=== PATIENT | female | born 1940 | race African-American/Black ===

== ENCOUNTER 2016-07-17 08:16 | Day surgery (SDC) | payer OTHER ==
[2016-07-12 11:07] VITALS: BMI 24.9
[2016-07-17 08:46] VITALS: TEMP 98.1
[2016-07-17] MEDS ORDERED: LIDOCAINE HCL/PF 2% SDV 5ML VIAL ONE (10:06)
[2016-07-17] MEDS ORDERED: PROPOFOL 20 ML ONE ×2 (10:06→10:08)
[2016-07-17 11:47] VITALS: BP 103/63; PULSE 74
--- NOTE | 2016-07-18 11:29 | PATH ---
Surgical Pathology Report Patient Name: AURE CHIN [facility]. Rec. #: [id number] /Age/Gender: 1940 (Age: 75) / F Account: [id number] [facility] Taken: 07/17/2016 Received: 07/17/2016 Reported: 07/18/2016 Physicians: Tc Carter M.D. Specimen(s) Received A: BX ANTRUM B: BX DISTAL ESOPHAGUS C: BX POLYP RIGHT COLON Clinical History Dotson's, history of polyps Dotson's, polyp Final Diagnosis A. STOMACH, ANTRUM, BIOPSY: MODERATE CHRONIC GASTRITIS WITH INTESTINAL METAPLASIA. NO DYSPLASIA IDENTIFIED. IMMUNOSTAIN FOR H. PYLORI IS NEGATIVE. B. DISTAL ESOPHAGUS, BIOPSY: SQUAMOUS AND GASTRIC MUCOSA WITH CHRONIC INFLAMMATION AND INTESTINAL METAPLASIA CONSISTENT WITH DOTSON'S ESOPHAGUS IN THE PROPER CLINICAL CONTEXT. NO DYSPLASIA IDENTIFIED. C. COLON, RIGHT, BIOPSY: TUBULAR ADENOMA. Electronically Signed Cain Mullins M.D. Gross Description A. Received in formalin, labeled "antrum" are 2 elder, irregular portions of soft tissue averaging 0.4 cm. in greatest dimension. The specimens are submitted in toto in one cassette. B. Received in formalin, labeled "distal esophagus" is a elder, irregular portion of soft tissue measuring 0.4 cm. in greatest dimension. The specimen is submitted in toto in one cassette. C. Received in formalin, labeled "polyp right colon" is a elder, irregular portion of soft tissue measuring 0.2 cm. in greatest dimension. The specimen is submitted in toto in one cassette. 07/17/2016 saudi07/17/2016
== END 2016-07-17 11:35 | disposition home or self-care (01) ==
LOC: FASU-ENDO 08:16
PROVIDERS: ATTEND Internal Medicine Gastroenterology
PROC: 0DB48ZX Excision of Esophagogastric Junction, Via Natural or Artificial Opening Endoscopic, Diagnostic (ICD-10-PCS; 2016-07-17)
PROC: 0DB68ZX Excision of Stomach, Via Natural or Artificial Opening Endoscopic, Diagnostic (ICD-10-PCS; 2016-07-17)
PROC: 0DBK8ZX Excision of Ascending Colon, Via Natural or Artificial Opening Endoscopic, Diagnostic (ICD-10-PCS; principal; 2016-07-17 10:22)
DX: Z86.010 Personal history of colon polyps (principal); Z80.0 Family history of malignant neoplasm of digestive organs; Z83.71 Family history of colonic polyps; D12.2 Benign neoplasm of ascending colon; K29.50 Unspecified chronic gastritis without bleeding; K22.70 Barrett's esophagus without dysplasia
CPT/HCPCS: 88305-TC; 88342-TC

== ENCOUNTER 2018-06-13 09:09 | Inpatient (IN) | payer OTHER ==
[2018-06-13] MEDS ORDERED: SODIUM CHLORIDE 1,000 ML IV SCH (09:15)
--- NOTE | 2018-06-13 09:32 | PDOC ---
History of Present Illness - General Chief Complaint: CVA/TIA Stated Complaint: POSS STROKE Time Seen by Provider: 06/13/18 09:11 History Source: Patient Exam Limitations: No Limitations - History of Present Illness Initial Comments: 06/13/18 10:49 The patient is a 77F with a PMH of HTN, HLD, and Puckett's esophagus who presents to the ER with complaints of slurred speech. The patient states that she noticed her speech was slurred around 0845 this morning and she was brought to the hospital. She states she's been "feeling weird" for the past few weeks and denies any other numbness, tingling, and weakness in her body. She denies any changes in vision and inability to walk. tPA Exclusion Checklist 0-3hr - Time Elapsed Date last known well: 06/13/18 Time last known well: 08:45 Elaspsed time: Day(s) and 3 Hour(s) and 0 Minutes - Thrombolytic Therapy Candidate Is the patient eligible for Thrombolytic Therapy?: Yes - Exclusion Criteria 0-3hr SBP greater than 185 or DBP greater than 110mmHg despite tx: No Recent IC/spinal surgery,head trauma or stroke w/in last 3mo: No Hx of previous IC hemorrhage, IC neoplasm, AVM or aneurysm: No Active internal bleeding: No Blding diathesis(low plt ct, inc PTT,INR>1.7 or use of NOAC): No Symptoms suggest subarachnoid hemorrhage: No CT demonstrates multilobar infarct(>1/3 cerebral hemiphere): No Arterial puncture at noncompressible site in previous 7 days: No Blood glucose concentration less than 50mg/dL (2.7mmol/L): No - Relative Exclusion Criteria 0-3h Rapid improvement: Yes - Ineligibility reason(s) Reasons No tPA given: See reason(s) noted above (Improvement in symptoms with low NIHSS) NIH Stroke Scale - Last Known Well Date/Time & Onset Date Last Known Well: 06/13/18 Time Last Known Well: 08:45 - Initial Evaluation Level of consciousness: Alert Ask patient to open & close eyes; make fist and let go: Obeys both correctly Best gaze (horizontal eye movement): Normal Visual field testing: No visual field loss Facial paresis (Show teeth/raise eyebrows/close eyes tight): Minor paralysis ( flattened nasolabial fold, asymmetry on smiling) Motor Function: Left Arm: Drift Motor Function: Right Arm: Normal (extends arm 90 (or 45) degrees for 10 seconds without drift Motor Function: Left Leg: Normal (extends leg 30 degrees for 5 seconds without drift) Motor Function: Right Leg: Normal (extends leg 30 degrees for 5 seconds without drift) Limb Ataxia: No ataxia Sensory(Use pinprick test arms,legs,trunk,face/side to side): Normal Best language (Describe picture, name items, read sentences): Mild to moderate aphasia Dysarthria (read several words): Normal articulation Extinction and Inattention: No abnormality Past History - Past Medical History Allergies/Adverse Reactions: Allergies Allergy/AdvReac Type Severity Reaction Status Date / Time shellfish derived Allergy Intermediate Rash Verified 06/13/18 09:31 IV CONTRAST DYE AdvReac Intermediate Vomiting Uncoded 06/13/18 09:31 Home Medications: Ambulatory Orders Valsartan [Diovan] 160 mg PO DAILY 05/24/11 Pravastatin Sodium 10 mg PO DAILY 05/04/16 Ascorbic Acid [Vitamin C -] 250 mg PO DAILY 07/12/16 Aspirin Coated [Ecotrin -] 81 mg PO DAILY 07/12/16 Pantoprazole Sodium 40 mg PO PRN PRN 07/12/16 Anemia: No Asthma: No Cancer: No Cardiac Disorders: No CVA: No COPD: No CHF: No Dementia: No Diabetes: No GI Disorders: Yes (Barrets syndrome) Disorders: No HTN: Yes (DX 1991) Hypercholesterolemia: Yes (DX 1991) Liver Disease: No Seizures: No Thyroid Disease: No - Surgical History Abdominal Surgery: No Appendectomy: No Cardiac Surgery: No Cholecystectomy: No Lung Surgery: No Neurologic Surgery: No Orthopedic Surgery: Yes (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 No weakness. HEAD, EYES, EARS, NOSE AND THROAT: No change in vision. No ear pain or discharge. No sore throat. CARDIOVASCULAR: No chest pain, palpitations, or lightheadedness. RESPIRATORY: No cough, wheezing, shortness of breath, or hemoptysis. GASTROINTESTINAL: No nausea, vomiting, diarrhea, constipation, or abdominal pain. GENITOURINARY: No dysuria, frequency, hematuria, or change in urination. MUSCULOSKELETAL: No joint or muscle swelling or pain. No neck or back pain. SKIN: No rash or lesions. NEUROLOGIC: Positive for slurred speech. No headache, numbness, tingling, focal weakness, loss of consciousness, or change in strength/sensation. ENDOCRINE: No increased thirst. No abnormal weight change. HEMATOLOGIC/LYMPHATIC: No anemia, easy bleeding, or history of blood clots. ALLERGIC/IMMUNOLOGIC: No hives or skin allergy. Is the patient limited Luxembourgish proficient: No *Physical Exam - Vital Signs Last Vital Signs Temp Pulse Resp BP Pulse Ox 110 H 16 181/107 H 97 06/13/18 09:09 06/13/18 09:09 06/13/18 09:09 06/13/18 09:09 - Physical Exam Comments: 06/13/18 10:51 GENERAL: Well developed, well nourished. Awake and alert. No acute distress. HEENT: Normocephalic, atraumatic. Hearing grossly normal. Moist mucous membranes. PERRLA, EOMI. No conjunctival pallor. Sclera are non-icteric. Oropharynx is clear. NECK: Supple. Full ROM. No JVD. Carotid pulses 2+ and symmetric, without bruits. No thyromegaly. No lymphadenopathy. CARDIOVASCULAR: Regular rate and rhythm. No murmurs, rubs, or gallops. Distal pulses are 2+ and symmetric. PULMONARY: No evidence of respiratory distress. Lungs clear to auscultation bilaterally. No wheezing, rales or rhonchi. ABDOMINAL: Soft. Non-tender. Non-distended. No rebound or guarding. No organomegaly. Normoactive bowel sounds. GENITOURINARY: No CVA tenderness bilaterally. MUSCULOSKELETAL: Normal range of motion at all joints. No bony deformities or tenderness. EXTREMITIES: No cyanosis. No clubbing. No edema. No calf tenderness or swelling. SKIN: Warm and dry. Normal capillary refill. No rashes. No jaundice. NEUROLOGICAL: Alert, awake, appropriate. L facial droop appreciated. Otherwise, cranial nerves 2-12 intact. No deficits to light touch and temperature in face, upper extremities and lower extremities. 5/5 strength in R deltoids, biceps, triceps, quadriceps, hamstrings, and gastrocnemius. 4/5 strength in L hand skin grader , otherwise 5/5 strength on L side. No drift noted in b/l upper and lower extremities Finger to nose normal bilaterally. Normal speech. PSYCHIATRIC: Cooperative. Good eye contact. Appropriate mood and affect. Moderate Sedation - Procedure Monitoring Vital Signs: Procedure Monitoring Vital Signs Temperature Pulse Rate 110 H 06/13/18 09:09 Respiratory Rate 16 06/13/18 09:09 Blood Pressure 181/107 H 06/13/18 09:09 O2 Sat by Pulse Oximetry (%) 97 06/13/18 09:09 ED Treatment Course - LABORATORY CBC & Chemistry Diagram: 06/13/18 09:30 06/13/18 09:30 Medical Decision Making - Medical Decision Making 06/13/18 09:31 The patient is a 77F with a PMH of HTN and HLD who presents with acute onset slurred speech with notable L arm skin grader weakness and facial droop concerning for CVA/TIA. Serafin jorge was called immediately upon her arrival to ED. During CT, pt remained stable and had slight improvement of symptoms. Neurology at bedside. Case d/w Dr. Lopez, neurology, at bedside who states that her symptoms have improved with a current NIHSS of 2. Will not give TPA. 06/13/18 10:54 Pt currently stable. Labs WNL. 06/13/18 11:[address] Curtis for admission. *DC/Admit/Observation/Transfer Diagnosis at time of Disposition: Cerebrovascular accident (CVA) Qualifiers: CVA mechanism: other Qualified Code(s): I63.89 - Other cerebral infarction - Discharge Dispostion Condition at time of disposition: Guarded Decision to Admit order: Yes - Referrals Referrals: Palak Pelaez MD [Primary Care Provider] - - Patient Instructions - Post Discharge Activity
[2018-06-13 09:48] LABS: BASO % 1.4 % (0-2.0); EOS % 2.6 % (0-4.5); HEMATOCRIT 39.6 % (32.4-45.2); HEMOGLOBIN 13.3 GM/dL (10.7-15.3); LYMPH % 37.2 % (8-40); MCH 30.8 pg (25.7-33.7); MCHC 33.7 g/dl (32.0-36.0); MEAN CELL VOLUME 91.4 fl (80-96); MEAN PLT VOLUME 8.5 fl (7.5-11.1); MONO % 7.5 % (3.8-10.2); NEUT % 51.3 % (42.8-82.8); PLATELET COUNT 214 K/MM3 (134-434); RBC 4.33 M/mm3 (3.60-5.2); RDW 14.7 % (11.6-15.6); WHITE BLOOD COUNT 4.7 K/mm3 (4.0-10.0)
--- NOTE | 2018-06-13 10:00 | CON.NEURO ---
Consult Consult Specialty:: Neurology Referred by:: Dr. Jolly Powell Reason for Consultation:: Code Jaime - History of Present Illness Chief Complaint: speech difficulty and left sided weakness for an hour History of Present Illness: Patient with history of hypertension noted acute onset of difficulty speaking and daughter said that her face was twisted. They called 911. As they went through the process of getting processed through the "stroke code" protocol she noticed substantial and rapid improvement in her symptoms, though not complete. She denies any headache this AM, though for years had suffered with migraines , though not lately. She is not dizzy. She understands well. - History Source History Provided By: Patient Limitations to Obtaining History: No Limitations - Past Medical History RECREATIONAL SPECIALIST: Yes: Peripheral Neuropathy (patient says that her toes have been numb for years) Cardio/Vascular: Yes: HTN - Alcohol/Substance Use Hx Alcohol Use: No - Smoking History Smoking history: Never smoked Have you smoked in the past 12 months: No If you are a former smoker, when did you quit?: 1985 Home Medications - Allergies Allergies/Adverse Reactions: Allergies Allergy/AdvReac Type Severity Reaction Status Date / Time shellfish derived Allergy Intermediate Rash Verified 06/13/18 09:31 IV CONTRAST DYE AdvReac Intermediate Vomiting Uncoded 06/13/18 09:31 - Home Medications Home Medications: Ambulatory Orders Valsartan [Diovan] 160 mg PO DAILY 05/24/11 Pravastatin Sodium 10 mg PO DAILY 05/04/16 Ascorbic Acid [Vitamin C -] 250 mg PO DAILY 07/12/16 Aspirin Coated [Ecotrin -] 81 mg PO DAILY 07/12/16 Pantoprazole Sodium 40 mg PO PRN PRN 07/12/16 Physical Exam-Neuro Vital Signs: Vital Signs Temperature Pulse Rate 85 06/13/18 09:50 Respiratory Rate 16 06/13/18 09:50 Blood Pressure 139/98 06/13/18 09:50 O2 Sat by Pulse Oximetry (%) 98 06/13/18 09:50 Constitutional: Yes: Well Nourished, No Distress, Calm, Thin Neck: Yes: Supple - Neuro Exam Level Of Consciousness: Yes: Alert, Oriented to Person, Oriented to Place, Oriented to Time Eyes: Yes: NATACHA Speech: Slurred Cranial Nerves II-XII Intact: No (decreased left nasolabial fold) DTR's: 2+ Left Bicep, 2+ Right Bicep, 2+ Left Tricep, 2+ Right Tricep, 2+ Left Brachioradialis, 2+ Right Brachioradialis Response to light touch: Normal Motor Strength: 5/5: Left Arm, Right Arm, Left Leg, Right Leg Gait: Deferred NIH Stroke Scale - Last Known Well Date/Time & Onset Date Last Known Well: 06/13/18 Time Last Known Well: 08:30 - Initial Evaluation Level of consciousness: Alert Ask patient the month and their age: Answers both correctly Ask patient to open & close eyes; make fist and let go: Obeys both correctly Best gaze (horizontal eye movement): Normal Visual field testing: No visual field loss Facial paresis (Show teeth/raise eyebrows/close eyes tight): Minor paralysis ( flattened nasolabial fold, asymmetry on smiling) Motor Function: Left Arm: Normal Motor Function: Right Arm: Normal (extends arm 90 (or 45) degrees for 10 seconds without drift Motor Function: Left Leg: Normal (extends leg 30 degrees for 5 seconds without drift) Motor Function: Right Leg: Normal (extends leg 30 degrees for 5 seconds without drift) Limb Ataxia: No ataxia Sensory(Use pinprick test arms,legs,trunk,face/side to side): Normal Best language (Describe picture, name items, read sentences): No Aphasia Dysarthria (read several words): Mild to moderate slurring of words Extinction and Inattention: No abnormality - Total Score NIH Stroke Scale Score: 2 Imaging - Results Cat Scan: Report Reviewed, Image Reviewed (Extensive periventricular white matter ischemic changes) Problem List - Problems (1) Other cerebral infarction Code(s): I63.89 - OTHER CEREBRAL INFARCTION Assessment/Plan Rapidly improving stroke with minor deficits at the time of assessment and likelihood of further improvement push risk/benefit ratio against administration of TPA. Would change Aspirin to Plavix and increase dose of pravastatin. Would get MRI brain, MRA brain and neck. Echo and holter monitor. Thanks.
[2018-06-13 10:09] LABS: INR 1.07 (0.83-1.09); PROTHROMBIN TIME (PATIENT) 12.6 SEC (9.7-13.0)
[2018-06-13 10:12] LABS: ALBUMIN 4.3 g/dl (3.4-5.0); ALK PHOS 72 U/L (45-117); ANION GAP 7 MMOL/L (8-16); BILIRUBIN,TOTAL 0.8 mg/dL (0.2-1); BLOOD UREA NITROGEN 15 mg/dL (7-18); CALCIUM 9.1 mg/dL (8.5-10.1); CHLORIDE 108 mmol/L (98-107); CHOLESTEROL 188 mg/dL (50-200); CO2 27 mmol/L (21-32); CREATININE 1.1 mg/dL (0.55-1.3); GLUCOSE,RANDOM 89 mg/dL (74-106); HDL CHOLESTEROL 70 mg/dL (40-60); POTASSIUM 4.1 mmol/L (3.5-5.1); SGOT/AST 14 U/L (15-37); SGPT/ALT 13 U/L (13-61); SODIUM 142 mmol/L (136-145); TOT PROT 7.3 g/dl (6.4-8.2); TRIGLYCERIDES 58 mg/dL (0-150)
--- NOTE | 2018-06-13 11:01 | PDOC ---
Attending Attestation - Resident Resident Name: Jayson Hazel - ED Attending Attestation I have performed the following: I have examined & evaluated the patient, The case was reviewed & discussed with the resident, I agree w/resident's findings & plan, Exceptions are as noted - HPI HPI: 06/13/18 12:27 The patient is a 77 year old female, with a significant PMH of hypertension, dyslipidemia, schafer's syndrome, who presents to the emergency department with dysarthria occurring prior to arrival. The patient reports she noted her speech was slurred at approx 8:45 am this morning which prompted the ED visit. The patient endorses feeling weird for the past few weeks. The patient denies any numbness, tingling or loss of sensation. Denies any weakness. Denies any visual changes or blurry vision. Denies difficulty ambulating. Denies any confusion. The patient denies chest pain, shortness of breath, headache and dizziness. Denies fever, chills, nausea, vomit, diarrhea and constipation. Denies dysuria, frequency, urgency and hematuria. Allergies: shellfish derived, [IV CONTRAST DYE] - Physicial Exam PE: 06/13/18 12:27 agree with resident exam - Medical Decision Making 06/13/18 10:27 77yo F presents to the ED with slurred speech, facial droop. Code ward activated. CTH negative. Dr. Lopez at the bedside on initial evaluation, states no TPA as pt's symptoms are improving. Plan for MRI/MRA head and neck, admission.
[2018-06-13] MEDS: CLOPIDOGREL BISULFATE 75 MG TABLET (FP) PO SCH (11:57)
--- NOTE | 2018-06-13 12:21 | EKG ---
Test Reason : Blood Pressure : / mmHG Vent. Rate : 086 BPM Atrial Rate : 086 BPM P-R Int : 142 ms QRS Dur : 082 ms QT Int : 346 ms P-R-T Axes : 035 016 034 degrees QTc Int : 414 ms NORMAL SINUS RHYTHM NORMAL ECG WHEN COMPARED WITH ECG OF 04-MAY-2016 09:13, NO SIGNIFICANT CHANGE WAS FOUND Confirmed by VERO ROTH MD ([id number]) on 06/13/2018 12:20:35 PM Referred By: Confirmed By:VERO ROTH MD
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
[2018-06-13] MEDS ORDERED: PANTOPRAZOLE 40 MG TABLET (FP) PO PRN (14:58)
--- NOTE | 2018-06-13 15:00 | CONSULT ---
Admitting History and Physical - Primary Care Physician PCP: Kari Forte - Admission History of Present Illness: Per EMR:: HISTORY OF PRESENT ILLNESS: Patient is a 77 year old female with past medical history of HTN, HLD, and Puckett's esophagus, presented with left facial droop and slurred speech that started this morning. Last well known at 8:45am. Patient reported she woke up this morning, "not feeling right", but doing her usual morning routine. She was getting ready to play tennis, when her sister noted that her lips were drooping , she was having slurred speech, and hoarseness of voice. She denies any diplopia, dysphagia, abnormal gait, weakness, numbness or tingling. No headache , dizziness, fever, chills, chest pain, SOB, palpitations, abdominal pain, diarrhea, urinary symptoms. Upon arrival at the ED, [facility] ward was called. NIHSS 2. Patient had a history of "memory lapse" 3 months ago, when she was in a car in the passenger seat from a [employer] party, she was not supposed to drive, but she went to the shuttle van driver's seat and drove the car. It took about 15 minutes before family was able to reach her and she became oriented back to reality. She wasn't aware what she was thinking at this time. Afterwards, she joined a study called " aging brain", where patients are having tests done to identify why they're having memory problems. ER course was notable for: (1)NIHSS 2 (2)Head CT - no evidence of acute ICH, edema, midline shift, mass effect, skull fracture. No evidence of acute territorial ischemic changes. 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 Neuropathy (patient says that her toes have been numb for years) Cardiovascular: Yes: HTN - Smoking History Smoking history: Never smoked Have you smoked in the past 12 months: No If you are a former smoker, when did you quit?: 1985 - Alcohol/Substance Use Hx Alcohol Use: No History - Admission Reason For Visit: CVA - Diagnostics CT Scan: Report Reviewed MRI: Pending - General Mental Status: Alert and Oriented, Awake and Alert, Able to Follow Commands Attention: Intact Ability to Follow Directions: Excellent Head/Neck Control: WFL - Hearing Hearing: Functional Speech Evaluation - Communication Primary Language: YAKUT Communication: Yes: Within Normal Limits Oral Expression Ability: Yes: Mild Impairment - Speech Production Able to Make Needs Known: Yes: WNL Intelligibility: Yes: Mildly Impaired - Speech Characteristics Voice Loudness: Mildly Soft/Quiet Voice Pitch: Yes: Normal Voice Phonatory-based Quality: Yes: Dysphonia Nasal Resonance: Normal Articulation: Yes: Imprecise (slight. Bit left lateral portion of tongue while chewing sandswich. 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: WNL Short Term Memory: Yes: WNL - Swallow Evaluation/Bedside Assessment Current Nutritional Intake: Regular, Thin Liquids Oral Secretions: Yes: WFL Dentition: Yes: Adequate (underbite) Facial Symmetry at Rest: Facial Droop Left Facial Symmetry on Retraction: Facial Droop Left Facial Movement: Controlled Sensation: Normal Against Resistance Opening: Normal Against Resistance Closing: Normal Pucker Lips: Droops Left Smile: Droops Left Lingual Movement: Normal, Symmetric Lingual Speed of Movement: Normal Lingual Movement Strgth Against Opposition: Reduced (slight?) Lingual Movement Characteristics: Normal Velopharyngeal Movement: Normal Laryngeal Elevation: Impaired Laryngeal Movement: Reduced Excursion, Labored,delay initiation Rate of Intake: WFL Bolus Size: WFL Labial Seal: Impaired Left (leakage occasionally while drinking.) Chewing: Impaired (bit tongue) A-P Transit: WFL Pocketing: None Timing of Swallow: Delayed Coughing/Throat Clear: Yes (thin tea, harsh cough) Recommendations - Speech Evaluation, Impression/Plan Impression: Harsh cough response while drinking tea.Suspect aspiration. Reports subjective change in swllowing. Dysphonia/Dysphagia/Left facial weakness, bit left side of tongue. Cognition/language functional. - Dysphagia Impressions/Plan Swallowing Skills: Impaired Dysphagia Impressions: Mild Impairment, Suspect Aspiration *Silent aspiration: cannot be R/O at bedside Dysphagia Treatment Plan: Small Bites, Chin Tuck/Down, Trial Feedings, Safe Rate , 1/2 tsp. at a time, Elevate HOB during feed Recommendations: Modified Barium Swallow - Recommendations Diet Consistency: Dysphagia Pureed (to allow tongue to heal, and avoid biting tongue) Medication Administration: Crushed with applesauce Liquids: [place] Thick Supplement: Magic Cup, Ensure Pudding, Other (Ensure Compact)
--- NOTE | 2018-06-13 15:15 | PN ---
Teaching Attending Note Name of Resident: Emily Stevens ATTENDING PHYSICIAN STATEMENT I saw and evaluated the patient. I reviewed the resident's note and discussed the case with the resident. I agree with the resident's findings and plan as documented. SUBJECTIVE: CC: facial droop HPI: very pleasant 77 y/o lady with h/o HTN, HLP, and Barrettes esophagus who presented due to L facial droop and change in her speech. patient was getting ready to go to Tennis and was felt to have abnormal speech by her sister and a " twisted face ". she took a cab and came to ER . upon exam in ER her NIHSS was 2 and her exam improved rapidly. she denied any weakness, numbness or tingling, denied any change in vision . She has no SON she felt transiently unsteady but did not fall. she reports a 15 min episode of disorientation and retrograde memory loss in January 2018. denies palpitations. had MRI 3-4 weeks ago at an out patient memory study center . Now she is on tele floor, she feels better but feels that her lower lip was bigger than before and turned outwards. OBJECTIVE: NAD. awake, alert , oriented x 3. pleasant and cooperative HEENT: MMM, no JVD. EOMI, round equal pupils, L lower facial droop CV: RRR, no mRG Lungs: CTAB Ext : no edema or erythema, no fungal infection. Abd: soft, NT, ND , NL BS. Neuro : EOMI, round pupils, reactive to light and equal. Tongue and uvula at mid line. speech Normal . left lower facial droop with effacement in nasolabial fold nl facial sensation . strength : LUE: shoulder shrug 5/5 , shoulder abduction 5/5 , biceps/triceps 5/5 , hand color coater 5/5 RUE : shoulder shrug 5/5 , shoulder abduction 5/5 , biceps/triceps 5/5 , hand color coater 5/5 RLE: hip felxion 5/5 , knee flexion /extension 5/5 , ankle dorsiflexion and plantar flexion 5/5 . LLE: hip felxion 5/5 , knee flexion /extension 5/5 , ankle dorsiflexion and plantar flexion 5/5 Sensation to light touch Nl, except for decreased sensation in big toes b/l ( chronic ) Reflexes: 2+ knee jerk, biceps, and BR b/l Nose to finger NL. gait NL CT scan and EKG reviewed. ASSESSMENT AND PLAN: Very pleasant 77 y/o lady with h/o HTN, HLP, and Barrettes esophagus who presented due to L facial droop and change in her speech. 1- L facial droop and abnormal speech, sx are consistent with a acute stroke - permissive hypertension . hold HTN meds unless BP > 220/120 - speech eval - MRI - start crestor instead of prava. LDL above goal - appreciate neuro Recs , switch to plavix - tele monitoring. .if neg need holter or prolonged monitoring as out pt - echo and CUS. 2- h/o HTN: as above . - Hold valsartan 3- HLP : as above . crestor 4- PT eval . start DVT px possible dc tomorrow
--- NOTE | 2018-06-13 16:00 | ECHO ---
Name: AURE CHIN Exam:Adult Echocardiogram Study Date: 06/13/2018 01:12 PM Age: 77 yrs Reason For Study: R/O Thrombus and Valvular Height: 67 in Weight: 154 lb BSA: 1.8 m2 MMode/2D Measurements & Calculations IVSd: 1.1 cm Ao root diam: 2.7 cm LVIDd: 3.4 cm ACS: 1.8 cm LVIDs: 2.9 cm LVPWd: 1.4 cm EDV(Teich): 45.8 ml LVOT diam: 2.0 cm ESV(Teich): 33.4 ml Doppler Measurements & Calculations Med Peak E' Michael: 7.7 cm/sec Lat Peak E' Michael: 8.0 cm/sec Procedure A complete two-dimensional transthoracic echocardiogram was performed (2D, M-mode, Doppler and color flow Doppler). Left Ventricle The left ventricular size, thickness and function are normal. The left ventricular ejection fraction is normal. Ejection Fraction = 55-60%. No regional wall motion abnormalities noted. Right Ventricle The right ventricle is normal in size and function. Atria Normal left and right atrial size and function. Mitral Valve There is no mitral regurgitation noted. Tricuspid Valve There is trace tricuspid regurgitation. Aortic Valve The aortic valve is trileaflet. No hemodynamically significant valvular aortic stenosis. Trace aortic regurgitation. Pulmonic Valve Trace to mild pulmonic valvular regurgitation. Great Vessels The aortic root is normal size. Pericardium/Pleura There is no pericardial effusion. Interpretation Summary The left ventricular size, thickness and function are normal The right ventricle is normal in size and function. There is trace tricuspid regurgitation. Trace aortic regurgitation. Trace to mild pulmonic valvular regurgitation. MD Willis Burgos 06/13/2018 03:59 PM
[2018-06-13] MEDS: HEPARIN NA (PORCINE) 5,000 UNITS/ML 1ML VIAL SQ SCH ×2 (16:48→21:02)
[2018-06-13 18:47] VITALS: BMI 24.3
[2018-06-13 19:17] LABS: URINE APPEARANCE CLEAR; URINE BILIRUBIN NEGATIVE (<2.0 mg/dL); URINE COLOR STRAW; URINE GLUCOSE (UA) NEGATIVE (NEGATIVE); URINE KETONE NEGATIVE (NEGATIVE); URINE LEUK ESTERASE NEGATIVE (NEGATIVE); URINE NITRITE NEGATIVE (NEGATIVE); URINE PROTEIN NEGATIVE (NEGATIVE); URINE UROBILINOGEN NEGATIVE mg/dL (0.2-1.0)
[2018-06-13] MEDS ORDERED: ROSUVASTATIN CA 20 MG TABLET (FP) PO SCH (22:00)
[2018-06-14] MEDS: HEPARIN NA (PORCINE) 5,000 UNITS/ML 1ML VIAL SQ SCH ×2 (05:29→15:53)
[2018-06-14 06:06] LABS: BASO % 1.2 % (0-2.0); EOS % 2.5 % (0-4.5); HEMATOCRIT 37.2 % (32.4-45.2); HEMOGLOBIN 13.2 GM/dL (10.7-15.3); LYMPH % 35.2 % (8-40); MCHC 35.4 g/dl (32.0-36.0); MEAN CELL VOLUME 90.5 fl (80-96); MEAN PLT VOLUME 8.3 fl (7.5-11.1); MONO % 6.4 % (3.8-10.2); NEUT % 54.7 % (42.8-82.8); PLATELET COUNT 193 K/MM3 (134-434); RBC 4.12 M/mm3 (3.60-5.2); RDW 14.6 % (11.6-15.6); WHITE BLOOD COUNT 5.4 K/mm3 (4.0-10.0)
[2018-06-14 06:59] LABS: ALBUMIN 3.8 g/dl (3.4-5.0); ALK PHOS 65 U/L (45-117); ANION GAP 6 MMOL/L (8-16); BILIRUBIN,TOTAL 0.7 mg/dL (0.2-1); BLOOD UREA NITROGEN 16 mg/dL (7-18); CALCIUM 8.8 mg/dL (8.5-10.1); CHLORIDE 108 mmol/L (98-107); CO2 27 mmol/L (21-32); CREATININE 1.1 mg/dL (0.55-1.3); GLUCOSE,RANDOM 82 mg/dL (74-106); MAGNESIUM 2.3 mg/dL (1.8-2.4); PHOSPHOROUS 3.5 mg/dL (2.5-4.9); POTASSIUM 4.1 mmol/L (3.5-5.1); SGOT/AST 11 U/L (15-37); SGPT/ALT 13 U/L (13-61); SODIUM 141 mmol/L (136-145); TOT PROT 6.6 g/dl (6.4-8.2)
[2018-06-14] MEDS ORDERED: PT OWN MED DRAWER 7, Y5N ONE (09:50)
[2018-06-14] MEDS ORDERED: PATIENT'S OWN MEDICATION (NON-FORMULARY) (Pravastatin Sodium [Pravastatin Sodium] 10 MG) PO SCH (10:00)
[2018-06-14] MEDS ORDERED: ASCORBIC ACID 250 MG TABLET (FP) PO SCH (10:00)
[2018-06-14] MEDS: CLOPIDOGREL BISULFATE 75 MG TABLET (FP) PO SCH (10:07)
--- NOTE | 2018-06-14 17:05 | PN ---
Progress Note, Physician Chief Complaint: Left facial droop and dysarthria History of Present Illness: Patient with history of hypertension noted acute onset of difficulty speaking and daughter said that her face was twisted. They called 911. As they went through the process of getting processed through the "stroke code" protocol she noticed substantial and rapid improvement in her symptoms, though not complete. She denies any headache associated, though for years had suffered with migraines, though not lately, and not in many years. She is not dizzy. She understands well. Today she is substantiall improved, though not quite at baseline. I spoke with her neurologist at the [facility] Yesterday. she is being evaluated for dementia, and has had some white matter disease on her imaging studies in the past. She is being worked up and thought to perhaps have a vascular dementia, though no descrete strokes have been recorded, and its all small vessel disease. A diagnosis of CADASIL was considered, but her headaches have abated, and she is now doing quite well from that standpoint. She has leg cramps, and he was considering some obscure syndromes but couldn't recall the names. He'd like the patient to consult witht he [facility] Stroke service upon discharge. - Current Medication List Current Medications: Active Medications Ascorbic Acid (Vitamin C -) 250 mg PO DAILY [facility] Last Admin: 06/14/18 13:26 Dose: Not Given Clopidogrel Bisulfate (Plavix -) 75 mg PO DAILY [facility] Last Admin: 06/14/18 10:07 Dose: 75 mg Heparin Sodium (Porcine) (Heparin -) 5,000 unit SQ TID [facility] Last Admin: 06/14/18 15:53 Dose: 5,000 unit Pantoprazole Sodium (Protonix -) 40 mg PO DAILY PRN PRN Reason: DYSPEPSIA Rosuvastatin Calcium (Crestor -) 20 mg PO HS [facility] Last Admin: 06/13/18 21:02 Dose: 20 mg - Objective Vital Signs: Vital Signs Temperature 97.9 F 06/14/18 10:00 Pulse Rate 76 06/14/18 10:00 Respiratory Rate 18 06/14/18 10:00 Blood Pressure 138/90 06/14/18 10:00 O2 Sat by Pulse Oximetry (%) 98 06/14/18 10:00 Constitutional: Yes: Well Nourished, No Distress Neck: Yes: WNL Neurological: Yes: Alert, Oriented, Facial Droop (Very slight left droop, improved over yesterday.), Other (mild dysarthria, improved over yesterday. Otherwise, no focality/) ...Motor Strength: WNL Labs: CBC, BMP 06/14/18 05:55 06/14/18 05:55 INR, PTT INR 1.07 (0.83-1.09) 06/13/18 09:30 - ....Imaging MRI: Report Reviewed, Image Reviewed (small subcortical area of restricted diffusion in the right thrasher radiata consistent with her clinical findings) Problem List - Problems (1) Other cerebral infarction Code(s): I63.89 - OTHER CEREBRAL INFARCTION Assessment/Plan Rapidly improving stroke with minor deficits at the time of assessment and likelihood of further improvement push risk/benefit ratio against administration of TPA. Would change Aspirin to Plavix and increase dose of pravastatin. Would get MRI brain, MRA brain and neck. The results are as described. Echo and holter monitor. I think that the remainder of the workup can be completed as an outpatient if desired. I provided her with my number as well as the number for the [facility], and [facility], though as per her neurologist there , they cannot provide the level of care there to work up and follow up an acute stroke such as this. I'll sign her out to our weekend coverage, Dr. Richmond. Thanks.
[2018-06-14 17:54] VITALS: BP 148/86; PULSE 88; TEMP 98
--- NOTE | 2018-06-14 17:57 | DS ---
Physical Exam: SUBJECTIVE: Patient seen and examined at bedside this morning. Patient reports improvement of her left facial droop. Overnight, patient was biting her tongue while eating, but improved with soft diet. Otherwise she has no new complaints. OBJECTIVE: Vital Signs Period Temp Pulse Resp BP Sys/Hoffmann Pulse Ox Last 24 Hr 97.7 F-98.2 F 72-88 18-18 123-148/79-99 98-98 PHYSICAL EXAM GENERAL: Awake, alert, and fully oriented, in no acute distress. HEAD: Normal with no signs of trauma. EYES: PERRLA, EOMI, sclera anicteric, conjunctiva clear. EARS, NOSE, THROAT: Ears normal, nares patent, oropharynx clear without exudates. Moist mucous membranes. NECK: Normal range of motion, supple without lymphadenopathy, JVD, or masses. LUNGS: Breath sounds equal, clear to auscultation bilaterally. HEART: Regular rate and rhythm, normal S1 and S2 without murmur, rub or gallop. ABDOMEN: Soft, nontender, not distended, normoactive bowel sounds. MUSCULOSKELETAL: Normal range of motion at all joints. No bony deformities or tenderness. UPPER EXTREMITIES: 2+ pulses, warm, well-perfused. No cyanosis. No clubbing. No peripheral edema. LOWER EXTREMITIES: 2+ pulses, warm, well-perfused. No calf tenderness. No peripheral edema. NEUROLOGICAL: AAOx3, Left facial droop. Asymmetric smile, improved. Other Cranial nerves II-XII intact. Motor 5/5 on all extremities, sensation intact, DTRs +2, Slurred speech. Able to do FTNT. Normal gait. PSYCHIATRIC: Cooperative. Good eye contact. Appropriate mood and affect. SKIN: Warm, dry, normal turgor, no rashes or lesions. LABS Laboratory Results - last 24 hr 06/13/18 06/14/18 06/14/18 17:50 05:55 05:55 WBC 5.4 RBC 4.12 Hgb 13.2 Hct 37.2 MCV 90.5 MCH 32.0 MCHC 35.4 RDW 14.6 Plt Count 193 MPV 8.3 Absolute Neuts (auto) 2.9 Neutrophils % 54.7 Lymphocytes % 35.2 Monocytes % 6.4 Eosinophils % 2.5 Basophils % 1.2 Nucleated RBC % 0 Sodium 141 Potassium 4.1 Chloride 108 H Carbon Dioxide 27 Anion Gap 6 L BUN 16 Creatinine 1.1 Creat Clearance w eGFR 48.16 Random Glucose 82 Hemoglobin A1c % Calcium 8.8 Phosphorus 3.5 Magnesium 2.3 Total Bilirubin 0.7 AST 11 L ALT 13 Alkaline Phosphatase 65 Total Protein 6.6 Albumin 3.8 Urine Color Straw Urine Appearance Clear Urine pH 8.0 Ur Specific [place] 1.006 L Urine Protein Negative Urine Glucose (UA) Negative Urine Ketones Negative Urine Blood Negative Urine Nitrite Negative Urine Bilirubin Negative Urine Urobilinogen Negative Ur Leukocyte Esterase Negative 06/14/18 05:55 WBC RBC Hgb Hct MCV MCH MCHC RDW Plt Count MPV Absolute Neuts (auto) Neutrophils % Lymphocytes % Monocytes % Eosinophils % Basophils % Nucleated RBC % Sodium Potassium Chloride Carbon Dioxide Anion Gap BUN Creatinine Creat Clearance w eGFR Random Glucose Hemoglobin A1c % 5.3 Calcium Phosphorus Magnesium Total Bilirubin AST ALT Alkaline Phosphatase Total Protein Albumin Urine Color Urine Appearance Urine pH Ur Specific [place] Urine Protein Urine Glucose (UA) Urine Ketones Urine Blood Urine Nitrite Urine Bilirubin Urine Urobilinogen Ur Leukocyte Esterase -Head CT: No evidence of acute ICH, edema, midline shift, mass effect, skull fracture. No evidence of acute territorial ischemic changes. Extensive diffuse confluent decreased attenuation of periventricular, deep hemispheric white matter, likely hypertensive encephalopathy. -Echo -Carotid dopplers -MRI/MRA BRAIN: Moderate atrophy and moderate to marked periventricular chronic microvascular ischemic disease changes. Focal acute/subacute infarct in the right periventricular white matter at the level of the thrasher radiata measuring [id number]. Otherwise no mass lesion or ICH. Hypoplastic/aplastic right A1 segment with normal flow in the right A2 segment. Slightly attenuated flow in the distal branches of both posterior cerebral arteries, right more than left without evidence of focal hemodynamically significant stenosis. No gross aneurysm or vascular malformation is identified within the central intracranial arterial circulation. -MRA of neck: unremarkable exam. There is no evidence of hemodynamically significant stenosis at the common carotid bifurcation, bilaterally. HOSPITAL COURSE: Date of Admission:06/13/18 Date of Discharge: 06/14/18 Patient is a 77 year old female with past medical history of HTN, HLD, and Puckett's esophagus, presented with left facial droop and slurred speech for [address] was negative for any acute concerns. Neurology was consulted. PAtient's NIHSS was 2, no indication for TPA. Echo, carotid dopplers and MRI/ MRA were done. Patient was started on Plavix and Crestor. Speech and swallow consulted. Tele monitoring overnight did not show any arrhythmias. Patient rapidly improve in speech with minimal left facial droop. She was discharged with instructions to follow-up with neurology and cardiology for outpatient Holter monitoring. Minutes to complete discharge: 40 Discharge Summary Reason For Visit: CVA Current Active Problems Cerebrovascular accident (CVA) (Acute) Other cerebral infarction (Acute) Condition: Improved - Instructions Diet, Activity, Other Instructions: Your visit You were admitted to the hospital because you had slurred speech. Your MRI showed concerns regarding stroke. It is important that you follow-up with the neurologist and scanner operator for further work-up and management. Medications You were started on new medications. Please take them as prescribed: 1. Plavix 75 mg daily. 2. Crestor 20mg daily at bedtime. 3. Continue taking Valsartan 160mg daily. Please STOP taking the following medications: 1. Aspirin 81 mg. 2. Pravastatin 10mg. Follow-ups -Please follow-up with your primary care doctor within 1 week. -Follow-up with the neurologist (Dr. Lopez) within 1 week. -Please follow-up with the scanner operator (Dr. Schuster) within 1 week. Please discuss the scanner operator about outpatient prolonged Holter monitor. Please call the office to schedule an appointment. Additional info Call 911 or go to the ED if with any worsening weakness, numbness, confusion, headache, dizziness, fever, chills, nausea, vomiting, chest pain, shortness of breath, belly pain, diarrhea, or any new concerns noted. Referrals: Gregory Lopez MD [Staff Physician] - 1 Week Jayson Schuster MD [Staff Physician] - 1 Week Palak Pelaez MD [Primary Care Provider] - 1 Week Disposition: HOME - Home Medications Comprehensive Discharge Medication List: Ambulatory Orders Valsartan [Diovan] 160 mg PO DAILY 05/24/11 Ascorbic Acid [Vitamin C -] 250 mg PO DAILY 07/12/16 Pantoprazole Sodium 40 mg PO PRN PRN 07/12/16 Clopidogrel Bisulfate [Plavix -] 75 mg PO DAILY #30 tablet 06/14/18 Ranitidine [Zantac -] 150 mg PO DAILY 06/14/18 Rosuvastatin [Crestor -] 20 mg PO HS #30 tablet 06/14/18 This patient is new to me today: No Emergency Visit: Yes ED Registration Date: 06/13/18 Care time: The patient presented to the Emergency Department on the above date and was hospitalized for further evaluation of their emergent condition. Critical Care patient: No - Discharge Referral Referred to [facility] Med P.C.: No
--- NOTE | 2018-06-14 18:33 | PN ---
Teaching Attending Note Name of Resident: Emily Stevens ATTENDING PHYSICIAN STATEMENT I saw and evaluated the patient. I reviewed the resident's note and discussed the case with the resident. I agree with the resident's findings and plan as documented. SUBJECTIVE: No fever or chills. she feels her face is more symmetric today OBJECTIVE: NAD. awake, alert , oriented x 3. pleasant and cooperative CV: RRR, no mRG Lungs: CTAB Ext : no edema or erythema, no fungal infection. Neuro : EOMI, round pupils, reactive to light and equal. Tongue and uvula at mid line. speech Normal . left lower facial droop is better today Nl facial sensation . Strength : LUE: shoulder shrug 5/5 , shoulder abduction 5/5 , biceps/triceps 5/5 , hand compensation agent 5/5 RUE : shoulder shrug 5/5 , shoulder abduction 5/5 , biceps/triceps 5/5 , hand compensation agent 5/5 RLE: hip felxion 5/5 , knee flexion /extension 5/5 , ankle dorsiflexion and plantar flexion 5/5 . LLE: hip felxion 5/5 , knee flexion /extension 5/5 , ankle dorsiflexion and plantar flexion 5/5 Sensation to light touch Nl,feet sensation was not examined today Reflexes: 2+ knee jerk, biceps, and BR b/l Nose to finger NL. ASSESSMENT AND PLAN: Very pleasant 77 y/o lady with h/o HTN, HLP, and Barrettes esophagus who presented due to L facial droop and change in her speech. 1- acute CVA. MRI, MRA reviewed. - cont statin, BP control ( resume her home ARB), and plavix - f/u as outpt for prolonged cardiac monitoring - echo with no thrombi - Modified barium swallow noted 2- h/o HTN: - resume valsartan 3- HLP: crestor DC home
== END 2018-06-14 19:24 | disposition home or self-care (01) | DRG 65 ==
LOC: JER 09:09 → JERBED 10:56 → J4S 14:29
PROVIDERS: ADMIT Internal Medicine; ATTEND Internal Medicine
DX: I63.89 Other cerebral infarction (principal); I67.4 Hypertensive encephalopathy; I10 Essential (primary) hypertension; E78.5 Hyperlipidemia, unspecified; K22.70 Barrett's esophagus without dysplasia; R29.702 NIHSS score 2; G62.9 Polyneuropathy, unspecified; R29.810 Facial weakness; F01.50 Vascular dementia, unspecified severity, without behavioral disturbance, psychotic disturbance, mood disturbance, and anxiety
CPT/HCPCS: 36415; 70450-TC; 70544-TC; 70547-TC; 70551-TC; 74230-TC-FY; 80053; 81003; 82465; 82550; 83036; 83718; 83721; 83735; 84100; 84478; 84484; 85025; 85610; 86850; 86900; 86901; 92611-GN; 93005; 93010; 93306-TC; 93880-TC; 97116-GP; 97161-GP; 99285-25; J1644; J7030

== ENCOUNTER 2018-10-05 16:01 | Observation (INO) | payer OTHER ==
[2018-10-05] MEDS ORDERED: SODIUM CHLORIDE 1,000 ML IV SCH (17:15)
--- NOTE | 2018-10-05 17:31 | PDOC ---
History of Present Illness - General Chief Complaint: Lightheaded Stated Complaint: LIGHT HEADED Time Seen by Provider: 10/05/18 16:52 History Source: Patient Exam Limitations: No Limitations - History of Present Illness Initial Comments: 10/05/18 17:27 78F with a PMH of CVA, HTN, HLD, and Puckett's esophagus who presents to the ER with complaints of dizziness. The patient states that she had acute onset room- spinning sensation. This was accompanied with ataxia and slurred speech. She states that this feels like her prior stroke. She denies CP, SOB, nausea, vomiting, fever, chills. tPA Exclusion checklist 3-4.5h - Time Elapsed Date last known well: 10/05/18 Time last known well: 13:00 Elaspsed time: 3 Day(s) and 23 Hour(s) and 9 Minutes - Thrombolytic Therapy Candidate Is patient eligible for thrombolytic therapy: Yes - Exclusion Criteria 3-4.5 hr SBP greater than 185 or DBP greater than 110mmHg despite tx: No Recent IC/spinal surgery,head trauma or stroke<3mos.: No Hx IC hemorrhage, IC neoplasm, AV malformation or aneurysm: No Active internal bleeding: No Blding diathesis(low plt ct, inc PTT,INR>1.7 or use of NOAC): No Symptoms suggest subarachnoid hemorrhage: No CT demonstrates multilobar infarct(>1/3 cerebral hemiphere): No Arterial puncture at noncompressible site in previous 7 days: No Blood glucose concentration less than 50mg/dL (2.7mmol/L): No NIH Stroke Scale - Last Known Well Date/Time & Onset Date Last Known Well: 10/05/18 Time Last Known Well: 13:00 - Initial Evaluation Level of consciousness: Alert Ask patient the month and their age: Answers both correctly Ask patient to open & close eyes; make fist and let go: Obeys both correctly Best gaze (horizontal eye movement): Normal Visual field testing: No visual field loss Facial paresis (Show teeth/raise eyebrows/close eyes tight): Minor paralysis ( flattened nasolabial fold, asymmetry on smiling) Motor Function: Left Arm: Normal Motor Function: Right Arm: Drift Motor Function: Left Leg: Normal (extends leg 30 degrees for 5 seconds without drift) Motor Function: Right Leg: Normal (extends leg 30 degrees for 5 seconds without drift) Limb Ataxia: Present in one limb Sensory(Use pinprick test arms,legs,trunk,face/side to side): Normal Best language (Describe picture, name items, read sentences): No Aphasia Dysarthria (read several words): Mild to moderate slurring of words Extinction and Inattention: No abnormality - Total Score NIH Stroke Scale Score: 4 Past History - Past Medical History Allergies/Adverse Reactions: Allergies Allergy/AdvReac Type Severity Reaction Status Date / Time shellfish derived Allergy Intermediate Rash Verified 10/05/18 18:30 IV CONTRAST DYE AdvReac Intermediate Vomiting Uncoded 10/05/18 18:30 Home Medications: Ambulatory Orders Valsartan [Diovan] 160 mg PO DAILY 05/24/11 Ascorbic Acid [Vitamin C -] 250 mg PO DAILY 07/12/16 Pantoprazole Sodium 40 mg PO PRN PRN 07/12/16 Ranitidine [Zantac -] 150 mg PO DAILY 06/14/18 Rosuvastatin [Crestor -] 20 mg PO HS #30 tablet 06/14/18 Amlodipine Besylate [Norvasc -] 5 mg PO DAILY 10/05/18 Clopidogrel Bisulfate [Plavix] 75 mg PO DAILY 10/05/18 Aspirin Coated [Ecotrin -] 81 mg PO DAILY #60 tablet.ec 10/07/18 Cefuroxime Axetil [Ceftin -] 250 mg PO BID #6 tablet 10/07/18 Anemia: No Asthma: No Cancer: No Cardiac Disorders: No CVA: No COPD: No CHF: No Dementia: No Diabetes: No GI Disorders: Yes (Barrets syndrome) Disorders: No HTN: Yes (DX 1991) Hypercholesterolemia: Yes (DX 1991) Liver Disease: No Seizures: No Thyroid Disease: No - Surgical History Abdominal Surgery: No Appendectomy: No Cardiac Surgery: No Cholecystectomy: Yes Lung Surgery: No Neurologic Surgery: No Orthopedic Surgery: Yes (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 No weakness. HEAD, EYES, EARS, NOSE AND THROAT: No change in vision. No ear pain or discharge. No sore throat. CARDIOVASCULAR: No chest pain, palpitations, or lightheadedness. RESPIRATORY: No cough, wheezing, shortness of breath, or hemoptysis. GASTROINTESTINAL: No nausea, vomiting, diarrhea, constipation, or abdominal pain. GENITOURINARY: No dysuria, frequency, hematuria, or change in urination. MUSCULOSKELETAL: No joint or muscle swelling or pain. No neck or back pain. SKIN: No rash or lesions. NEUROLOGIC: + for dizziness, ataxia, and slurred speech. No headache, numbness, tingling, focal weakness, loss of consciousness, or change in strength/ sensation. Is the patient limited [place]an proficient: No *Physical Exam - Vital Signs Last Vital Signs Temp Pulse Resp BP Pulse Ox 97.8 F 76 16 126/86 99 10/05/18 16:07 10/05/18 16:07 10/05/18 16:07 10/05/18 16:07 10/05/18 16:07 - Physical Exam Comments: 10/05/18 17:50 GENERAL: Well developed, well nourished. Awake and alert. No acute distress. HEENT: Normocephalic, atraumatic. Hearing grossly normal. Moist mucous membranes. PERRLA, EOMI. No conjunctival pallor. Sclera are non-icteric. NECK: Supple. Full ROM. CARDIOVASCULAR: Regular rate and rhythm. No murmurs, rubs, or gallops. PULMONARY: No evidence of respiratory distress. Lungs clear to auscultation bilaterally. No wheezing, rales or rhonchi. ABDOMINAL: Soft. Non-tender. Non-distended. No rebound or guarding. MUSCULOSKELETAL: Normal range of motion at all joints. No bony deformities or tenderness. EXTREMITIES: No cyanosis. No clubbing. No edema. No calf tenderness or swelling. SKIN: Warm and dry. Normal capillary refill. No rashes. No jaundice. NEUROLOGICAL: Alert, awake, appropriate. L sided facial droop noted. Otherwise, cranial nerves 2-12 intact. No deficits to light touch and temperature in face, upper extremities and lower extremities. 4/5 strength in RUE. Otherwise, 5/5 strength in deltoids, biceps, triceps, quadriceps, hamstrings, and gastrocnemius. Finger to nose normal bilaterally. Normal speech. PSYCHIATRIC: Cooperative. Good eye contact. Appropriate mood and affect. Heart Score/ECG Review #1 ECG reviewed & interpreted by me at: 17:52 General ECG Interpretation: Sinus Rhythm, Normal Rate, Normal Intervals, No acute ischemic changes Compared to previous ECG there are: No significant change 10/05/18 17:53 NSR vent rate 80 AZ 156 QRS 76 QTc 431 No STD or YONIS No signs of acute ischemia ED Treatment Course - LABORATORY CBC & Chemistry Diagram: 10/07/18 05:30 10/07/18 09:15 - ADDITIONAL ORDERS Additional order review: Laboratory Results 10/05/18 17:11 POC Glucometer 87 10/05/18 17:11 POC Glucometer 87 - RADIOLOGY Radiology Studies Ordered: Category Date Time Status HEAD CT (STROKE) [CT] Stat CT Scan 10/05/18 17:06 Taken CHEST X-RAY PORTABLE* [RAD] Stat Radiology 10/05/18 16:56 Ordered Medical Decision Making - Medical Decision Making 10/05/18 17:46 78F with PMH of CVA, HTN, HLD on plavix presents to the ER after 4 hours of ataxia, dizziness, slurred speech, and facial droop. Case d/w Dr. Silver, covering for Dr. Lopez, who agrees with our plan for admission and agrees to not give TPA. We also discussed giving aspirin, which I will order. CTH negative for acute hemorrhage. Pending labs and admission. Pt otherwise well appearing. 10/05/18 18:32 Labs WNL. Will microblog for admission. 10/05/18 18:[address] Amaro for admission. *DC/Admit/Observation/Transfer Diagnosis at time of Disposition: Cerebrovascular accident (CVA) Qualifiers: CVA mechanism: other Qualified Code(s): I63.89 - Other cerebral infarction - Discharge Dispostion Disposition: HOME Condition at time of disposition: Stable - Referrals - Patient Instructions - Post Discharge Activity
[2018-10-05 17:43] LABS: BASO % 0.9 % (0-2.0); EOS % 1.5 % (0-4.5); HEMATOCRIT 38.8 % (32.4-45.2); LYMPH % 32.6 % (8-40); MCH 30.7 pg (25.7-33.7); MCHC 33.5 g/dl (32.0-36.0); MEAN CELL VOLUME 91.7 fl (80-96); MEAN PLT VOLUME 8.8 fl (7.5-11.1); MONO % 6.4 % (3.8-10.2); NEUT % 58.6 % (42.8-82.8); PLATELET COUNT 189 K/MM3 (134-434); RBC 4.23 M/mm3 (3.60-5.2); RDW 14.9 % (11.6-15.6); WHITE BLOOD COUNT 6.2 K/mm3 (4.0-10.0)
[2018-10-05 17:55] LABS: INR 1.1 (0.83-1.09)
[2018-10-05] MEDS ORDERED: ASPIRIN COATED 81 MG TABLET.EC PO ONE (18:01)
[2018-10-05] MEDS ORDERED: ASPIRIN COATED 81 MG TABLET.EC ONE ×2 (18:04→18:05)
[2018-10-05 18:11] LABS: CHOLESTEROL 148 mg/dL (50-200); HDL CHOLESTEROL 57 mg/dL (40-60); TRIGLYCERIDES 72 mg/dL (0-150)
--- NOTE | 2018-10-05 18:20 | PDOC ---
Documentation entered by Jono Recio SCRIBE, acting as scribe for Pedro Pablo Pope MD. Pedro Pablo Pope MD: This documentation has been prepared by the hansibe, Jono Recoi SCRIBE, under my direction and personally reviewed by me in its entirety. I confirm that the documentation accurately reflects all work, treatment, procedures, and medical decision making performed by me. Attending Attestation - Resident Resident Name: YaseminJayson - ED Attending Attestation I have performed the following: I have examined & evaluated the patient, The case was reviewed & discussed with the resident, I agree w/resident's findings & plan, Exceptions are as noted - HPI HPI: 10/05/18 17:20 The patient is a 78 year old female with a significant past medical history of hypertension, barretts syndrome, hypercholesterolemia, and CVA(May) who presents to the emergency department with dizziness that started at 1pm today. The patient states that she had just finished getting her hair done today when she felt a sudden onset of her symptom. The patient states that she felt as if the room was spinning and had difficulty walking steadily. On exam, the patient states that her lips feel funny and that her mouth is "moving". The patient states that when she is laying down she feels okay but if she gets up she feels dizzy and unsteady. Denies weakness/numbness in any extremity. She denies any fever, chills, nausea, vomiting, diarrhea, constipation or urinary symptoms. She denies any chest pain, shortness of breath, belly pain, headache. The patient denies any other complaints. - Physicial Exam PE: 10/05/18 18:26 "GENERAL: Awake, alert, and fully oriented, in no acute distress. HEAD: No signs of trauma EYES: PERRLA, EOMI, sclera anicteric, conjunctiva clear ENT: Auricles normal inspection, hearing grossly normal, nares patent, oropharynx clear without exudates. Moist mucosa NECK: Nontender, no stepoffs, Normal ROM, supple, no lymphadenopathy, JVD, or masses LUNGS: Breath sounds equal, clear to auscultation bilaterally. No wheezes, and no crackles HEART: Regular rate and rhythm, normal S1 and S2, no murmurs, rubs or gallops ABDOMEN: Soft, nontender, normoactive bowel sounds. No guarding, no rebound. No masses EXTREMITIES: Normal range of motion, no edema. No clubbing or cyanosis. No cords, erythema, or tenderness NEUROLOGICAL: + L facial droop. 5/5 strength and sensation in all extremities, Normal speech, + ataxia SKIN: Warm, Dry, normal turgor, no rashes or lesions noted. - Critical Care Time Total Critical Care Time: 60 Critical Care Statement: The care of this patient involved high complexity decision making to prevent further life threatening deterioration of the patient 's condition and/or to evaluate & treat vital organ system(s) failure or risk of failure. - Medical Decision Making 10/05/18 18:27 78 F with sudden onset ataxia at 1 PM. Exam notable for L facial droop. Suspect acute CVA. NIHSS 3. CT head negative. Pt within window for tPA, but after discussion with Dr. Silver, tPA deferred given low NIHSS, improvement of symptoms, and recent stroke. - Labs - Admit to stroke floor NIH Stroke Scale - Last Known Well Date/Time & Onset Date Last Known Well: 10/05/18 Time Last Known Well: 13:00 - Initial Evaluation Level of consciousness: Alert Ask patient the month and their age: Answers both correctly Ask patient to open & close eyes; make fist and let go: Obeys both correctly Best gaze (horizontal eye movement): Normal Visual field testing: No visual field loss Facial paresis (Show teeth/raise eyebrows/close eyes tight): Minor paralysis ( flattened nasolabial fold, asymmetry on smiling) Motor Function: Left Arm: Normal Motor Function: Right Arm: Normal (extends arm 90 (or 45) degrees for 10 seconds without drift Motor Function: Left Leg: Normal (extends leg 30 degrees for 5 seconds without drift) Motor Function: Right Leg: Normal (extends leg 30 degrees for 5 seconds without drift) Limb Ataxia: Present in two limbs Sensory(Use pinprick test arms,legs,trunk,face/side to side): Normal Best language (Describe picture, name items, read sentences): No Aphasia Dysarthria (read several words): Normal articulation Extinction and Inattention: No abnormality - Total Score NIH Stroke Scale Score: 3
[2018-10-05 18:31] LABS: ALBUMIN 4.2 g/dl (3.4-5.0); ALK PHOS 63 U/L (45-117); ANION GAP 6 MMOL/L (8-16); BILIRUBIN,TOTAL 0.5 mg/dL (0.2-1); BLOOD UREA NITROGEN 13 mg/dL (7-18); CALCIUM 9.2 mg/dL (8.5-10.1); CHLORIDE 107 mmol/L (98-107); CO2 26 mmol/L (21-32); GLUCOSE,RANDOM 81 mg/dL (74-106); POTASSIUM 4.2 mmol/L (3.5-5.1); SGOT/AST 15 U/L (15-37); SGPT/ALT 18 U/L (13-61); SODIUM 140 mmol/L (136-145)
[2018-10-05 19:09] LABS: EPI CELLS 2.3 /HPF (0-5/HPF); URINE APPEARANCE CLEAR; URINE BACTERIA 13.5 /hpf (NEGATIVE); URINE BILIRUBIN NEGATIVE (NEGATIVE); URINE CASTS 0 /lpf (0-8); URINE COLOR YELLOW; URINE GLUCOSE (UA) NEGATIVE (NEGATIVE); URINE KETONE NEGATIVE (NEGATIVE); URINE LEUK ESTERASE 3+ (NEGATIVE); URINE NITRITE NEGATIVE (NEGATIVE); URINE PROTEIN NEGATIVE (NEGATIVE); URINE RBC 1 /hpf (0-4); URINE UROBILINOGEN 0.2 mg/dL (0.2-1.0); URINE WBC 8 /hpf (0-5)
--- NOTE | 2018-10-05 19:20 | PN ---
Teaching Attending Note Name of Resident: Juvenal Amaro ATTENDING PHYSICIAN STATEMENT I saw and evaluated the patient. I reviewed the resident's note and discussed the case with the resident. I agree with the resident's findings and plan as documented. SUBJECTIVE: Seen and examined; please refer to resident note for further historical information. Briefly, this is a 78 y/o female w/ PMH CVA 05/2018 (facial droop, slurred speech, no tPA given; MRI showed R-periventricular WM acute/subacute CVA ). At that time she was placed on plavix, crestor 20, and had resolution of symptoms. At 1PM today felt 'shaky' when she was at rest while seated; when she got up to walk she was unsteady on feet and dizzy (consistent with orthostatic sx) and she was slurring some words with word finding difficulties so she was brought in to the ER. NIHSS per ER documentation was 4 (limb ataxia , NL fold changes, mild to moderate slurring). ER called Dr. Silver who recommended CVA workup and to give ASA which was given. She had interval resolution of symptoms when medicine saw her in the ER and NIHSS was 0 on initial exam from medicine resident and continued to be so. She follows with Dr. Patricia and was seen by Dr. Lopez here before. Was seen by neuro earlier this week for the wobbly gait; she was sent for labs and I am told she got a B12 injection. She has an event recorder in place from her nanotechnician that has been inplanted for several years; no reported arrhythmias. 10 sys ROS done and negative aside from HPI CVA, Hx HTN, HLD, Barretts esophagus, PSH, FH, SH reviewed Home Medications Medication Instructions Recorded Valsartan [Diovan] 160 mg PO DAILY 05/24/11 Ascorbic Acid [Vitamin C -] 250 mg PO DAILY 07/12/16 Pantoprazole Sodium 40 mg PO PRN PRN 07/12/16 Ranitidine [Zantac -] 150 mg PO DAILY 06/14/18 Rosuvastatin [Crestor -] 20 mg PO HS #30 tablet 06/14/18 *is also on plavix. OBJECTIVE: VS, labs, imaging reviewed NAD, AAO, resting comfortably in bed NC AT EOMI PERRLA RRR s1/2 no mgr; event recorder noted. Lungs CTAB, w/ sym exp NT ND +BS CN2-12 wnl, no fnd with 5/5 strength and normal sensation throughout, no facial asym. Gait is slow without any falls, etc. Did not do further testing to avoid falls. Normal mood, appropriate behavior Echo 05/2018 reviewed; Normal LVEF with trace AR/TR and normal RV function MRA neck 05/2018 reviewed; unremarkable vertebral arteries and carotid arteries with no evidence of hemodynamically significant stenosis MRA head shows hypoplastic R-A1 segment with normal R-A2 segment flow ASSESSMENT AND PLAN: Patient presents with suspected CVA; she has resolution of her symptoms and feels back to baseline. Possible orthostatic component to her dizziness. 1) Suspected TIA -Place on telemetry; followup MRI. Reviewed echo and MRA from earlier this year so no need to repeat. -Increasing crestor to 40; followup CMP. Continue ASA, continue plavix. Discuss with neuro regarding continuing dual tx. -The gait disturbance has been present for several days and she has seen Dr. Christiansen for this before in the week though aparently it acutely worsened. When I saw her again up in her room she stated she felt as if she could walk like her baseline but there wasn't staff available to ambulate. It sounds like she got a B12 injection for this earlier in the week from neuro. Will discuss with her neurologist and check B12 level. Would be helpful to review old records. -Word finding difficulties have resolved. No issues swallowing. Followup PT consult. Followup neuro consult; appreciate expert opinion. -Due to dizziness when sitting to standing will check orthostatic VS -Followup urine cx; not complaining of urinary sx but could precipitate issues, especially with underlying dementia. Given 1g ceft. 2) Wobbly Gait -Checking TSH, B12, RPR, ESR/CRP -PT consultation 3) Hx HTN -Continue diovan 4) Hx HLD -Continue crestor 5) Suspected Dementia -Admits forgetfulness; follows at [facility] for aging. Would be vascular dementia, likely. Full Code
--- NOTE | 2018-10-05 19:43 | HP ---
CHIEF COMPLAINT: Dizziness/slurred speech PCP: Dr. Hazel HISTORY OF PRESENT ILLNESS: 78 yo female with PMH Prior CVA, HLD, HTN?, Puckett's esophagus admitted following an episode of dizziness, instability walking, and some slurred speech that began around 1pm today. She states that she felt "off" and "shaky" at that time and her noticed she was "a little wobbly" walking which he does endorse has happened more frequently. She does state that this episode felt similar to her past stroke in May of this year. At that time she had a facial droop and some slurred speech which completely resolved. She denies any blurred vision, headache, LOC, focal weakness of extremities, fevers, chills, lightheadedness, n/v/d. Of note, pt states that her neurologist is Dr. Patricia, who she saw on Sunday of this week. She discussed her recent gait abnormality with him. He recommended lab work which she does not know the results of, and gave her a B12 shot. She also notes that he started her on a new medication for her memory about a month ago of which she does not know the name. ER course was notable for: (1) Neurology consulted, given 162 mg ASA (2) Head CT without acute bleed or acute infarct (3) Recent Travel: [place] PAST MEDICAL HISTORY: as above PAST SURGICAL HISTORY: Cholecystectomy, Spinal surgery, Social History: Smokin.5 ppd, quit 30 years ago Alcohol: denies Drugs: denies -Still plays tennis weekly Family History: Allergies shellfish derived Allergy (Intermediate, Verified 10/05/18 18:30) Rash IV CONTRAST DYE Adverse Reaction (Intermediate, Uncoded 10/05/18 18:30) Vomiting HOME MEDICATIONS: Home Medications Medication Instructions Recorded Valsartan [Diovan] 160 mg PO DAILY 05/24/11 Ascorbic Acid [Vitamin C -] 250 mg PO DAILY 07/12/16 Pantoprazole Sodium 40 mg PO PRN PRN 07/12/16 Ranitidine [Zantac -] 150 mg PO DAILY 06/14/18 Rosuvastatin [Crestor -] 20 mg PO HS #30 tablet 06/14/18 REVIEW OF SYSTEMS CONSTITUTIONAL: Absent: fever, chills, diaphoresis, generalized weakness, malaise, loss of appetite, weight change HEENT: Absent: rhinorrhea, nasal congestion, throat pain, throat swelling, difficulty swallowing, mouth swelling, ear pain, eye pain, visual changes CARDIOVASCULAR: Absent: chest pain, syncope, palpitations, irregular heart rate, lightheadedness , peripheral edema RESPIRATORY: Absent: cough, shortness of breath, dyspnea with exertion, orthopnea, wheezing, stridor, hemoptysis GASTROINTESTINAL: Absent: abdominal pain, abdominal distension, nausea, vomiting, diarrhea, constipation, melena, hematochezia GENITOURINARY: Absent: dysuria, frequency, urgency, hesitancy, hematuria, flank pain, genital pain MUSCULOSKELETAL: Absent: myalgia, arthralgia, joint swelling, back pain, neck pain SKIN: Absent: rash, itching, pallor HEMATOLOGIC/IMMUNOLOGIC: Absent: easy bleeding, easy bruising, lymphadenopathy, frequent infections ENDOCRINE: Absent: unexplained weight gain, unexplained weight loss, heat intolerance, cold intolerance NEUROLOGIC: unsteady gait Absent: headache, focal weakness or paresthesias, dizziness, , seizure, mental status changes, bladder or bowel incontinence PSYCHIATRIC: Absent: anxiety, depression, suicidal or homicidal ideation, hallucinations. PHYSICAL EXAMINATION Vital Signs - 24 hr 10/05/18 10/05/18 16:07 17:31 Temperature 97.8 F Pulse Rate 76 Pulse Rate [ 73 Apical] Respiratory 16 12 Rate Blood Pressure 126/86 Blood Pressure 136/92 [Right Arm] O2 Sat by Pulse 99 97 Oximetry (%) GEN: A&O, no acute distress HEENT: Moist mucus membranes, PERRLA, EOMI NEURO: CN II-XII in tact, 5/5 strength throughout, good reflexes, no sensation deficits, no facial asymmetry, no slurred speech HEART: RRR, no murmurs noted, implanted event monitor noted just left of sternal notch LUNGS: CTA b/l, no wheezes or rales ABDOMEN: Soft, nontender, normoactive bowel sounds EXTREMITIES: No peripheral edema or calf tenderness, pt does note mild decreased sensation on b/l great toes which has been present for years Laboratory Results - last 24 hr 10/05/18 10/05/18 10/05/18 17:11 17:30 17:30 WBC 6.2 RBC 4.23 Hgb 13.0 Hct 38.8 MCV 91.7 MCH 30.7 MCHC 33.5 RDW 14.9 Plt Count 189 MPV 8.8 Absolute Neuts (auto) 3.6 Neutrophils % 58.6 Lymphocytes % 32.6 Monocytes % 6.4 Eosinophils % 1.5 Basophils % 0.9 Nucleated RBC % 0 PT with INR INR Sodium 140 Potassium 4.2 Chloride 107 Carbon Dioxide 26 Anion Gap 6 L BUN 13 Creatinine 1.0 Est GFR (CKD-EPI)AfAm 62.49 Est GFR (CKD-EPI)NonAf 53.92 POC Glucometer 87 Random Glucose 81 Calcium 9.2 Total Bilirubin 0.5 AST 15 ALT 18 Alkaline Phosphatase 63 Creatine Kinase 125 Troponin I < 0.02 Total Protein 7.0 Albumin 4.2 Triglycerides Cholesterol Total LDL Cholesterol HDL Cholesterol Urine Color Urine Appearance Urine pH Ur Specific [place] Urine Protein Urine Glucose (UA) Urine Ketones Urine Blood Urine Nitrite Urine Bilirubin Urine Urobilinogen Ur Leukocyte Esterase Urine WBC (Auto) Urine RBC (Auto) Urine Casts (Auto) U Epithel Cells (Auto) Urine Bacteria (Auto) Blood Type Antibody Screen 10/05/18 10/05/18 10/05/18 17:30 17:30 17:30 WBC RBC Hgb Hct MCV MCH MCHC RDW Plt Count MPV Absolute Neuts (auto) Neutrophils % Lymphocytes % Monocytes % Eosinophils % Basophils % Nucleated RBC % PT with INR 13.00 INR 1.10 H Sodium Potassium Chloride Carbon Dioxide Anion Gap BUN Creatinine Est GFR (CKD-EPI)AfAm Est GFR (CKD-EPI)NonAf POC Glucometer Random Glucose Calcium Total Bilirubin AST ALT Alkaline Phosphatase Creatine Kinase Troponin I Total Protein Albumin Triglycerides 72 Cholesterol 148 Total LDL Cholesterol 74 HDL Cholesterol 57 Urine Color Urine Appearance Urine pH Ur Specific [place] Urine Protein Urine Glucose (UA) Urine Ketones Urine Blood Urine Nitrite Urine Bilirubin Urine Urobilinogen Ur Leukocyte Esterase Urine WBC (Auto) Urine RBC (Auto) Urine Casts (Auto) U Epithel Cells (Auto) Urine Bacteria (Auto) Blood Type O POSITIVE Antibody Screen Negative 10/05/18 18:58 WBC RBC Hgb Hct MCV MCH MCHC RDW Plt Count MPV Absolute Neuts (auto) Neutrophils % Lymphocytes % Monocytes % Eosinophils % Basophils % Nucleated RBC % PT with INR INR Sodium Potassium Chloride Carbon Dioxide Anion Gap BUN Creatinine Est GFR (CKD-EPI)AfAm Est GFR (CKD-EPI)NonAf POC Glucometer Random Glucose Calcium Total Bilirubin AST ALT Alkaline Phosphatase Creatine Kinase Troponin I Total Protein Albumin Triglycerides Cholesterol Total LDL Cholesterol HDL Cholesterol Urine Color Yellow Urine Appearance Clear Urine pH 7.0 Ur Specific [place] 1.007 L Urine Protein Negative Urine Glucose (UA) Negative Urine Ketones Negative Urine Blood Negative Urine Nitrite Negative Urine Bilirubin Negative Urine Urobilinogen 0.2 Ur Leukocyte Esterase 3+ H Urine WBC (Auto) 8 Urine RBC (Auto) 1 Urine Casts (Auto) 0 U Epithel Cells (Auto) 2.3 Urine Bacteria (Auto) 13.5 Blood Type Antibody Screen ASSESSMENT/PLAN: 78 yo female with PMH Prior CVA, HLD, HTN?, Puckett's esophagus admitted following an episode of dizziness, instability walking, and some slurred speech that began around 1pm today TIA -More likely TIA as symptoms have resolved at this point -CT head noted without any hemorrhage or observable infarct -Case discussed with neurology by ED who recommended ASA as patient is not currently on ASA at home -ASA 162 mg given -MRI pending -Carotid Duplex and ECHO results noted from admission in May without abnormalities, will hold off for now as very unlikely to have significantly changed in that short of a time period -TSH, CRP, ESR, RPR, B12 level pending -Neuro checks -Siezure/Aspiration precautions, speech and swallow consulted -Will increase Crestor from 20 mg to 40 mg PO HS as pt with TIA on current dose -Hold home b.p. meds to allow for permissive htn HTN -Hold home diovan to allow for permissive hypertension for now HLD -Lipid panel today noted, total chol 148, LDL 74 -as above Puckett's Esophagus/GERD -Continue home Zantac 150 mg PO Daily -Continue home Protonix 40 mg PO Daily FEN -NS @ 42 cc/hr until tolerating diet well, will also help with perfusion as b.p is within normal range for now -monitor and replete -Na/Chol controlled diet after bedside swallow eval DVT Prophylaxis -Early ambulation, SCDs Disposition Telemetry observation Visit type - Emergency Visit Emergency Visit: Yes ED Registration Date: 10/05/18 Care time: The patient presented to the Emergency Department on the above date and was hospitalized for further evaluation of their emergent condition. - New Patient This patient is new to me today: Yes Date on this admission: 10/05/18 - Critical Care Critical Care patient: No
[2018-10-05 21:22] VITALS: BMI 24.2
[2018-10-05] MEDS ORDERED: ROSUVASTATIN CA 40 MG TABLET PO SCH (22:00)
[2018-10-05] MEDS: ROSUVASTATIN CA 20 MG TABLET (FP) PO SCH (23:22)
[2018-10-06] MEDS ORDERED: CEFTRIAXONE 1 GM in DEXTROSE 5%-WATER 100 ML IVPB SCH (04:30)
[2018-10-06] MEDS ORDERED: cefTRIAXone SODIUM 1 GM VIAL ONE (04:40)
[2018-10-06] MEDS ORDERED: DEXTROSE 5%-WATER 100 ML IVPB ONE (04:41)
[2018-10-06 07:07] LABS: HEMATOCRIT 34.9 % (32.4-45.2); HEMOGLOBIN 11.8 GM/dL (10.7-15.3); MCH 31.1 pg (25.7-33.7); MCHC 33.7 g/dl (32.0-36.0); MEAN CELL VOLUME 92.2 fl (80-96); MEAN PLT VOLUME 9.2 fl (7.5-11.1); PLATELET COUNT 170 K/MM3 (134-434); RBC 3.78 M/mm3 (3.60-5.2); RDW 14.9 % (11.6-15.6); WHITE BLOOD COUNT 4.7 K/mm3 (4.0-10.0)
[2018-10-06 07:46] LABS: CALCIUM 8.8 mg/dL (8.5-10.1); CREATININE 1.1 mg/dL (0.55-1.3); MAGNESIUM 2.4 mg/dL (1.8-2.4); PHOSPHOROUS 3.9 mg/dL (2.5-4.9); POTASSIUM 4.1 mmol/L (3.5-5.1)
--- NOTE | 2018-10-06 10:02 | PN ---
Physical Exam: SUBJECTIVE: Patient seen and examined at the bedside. denies headache, denies visual defect. feels well overall. about to have an brain mri pending clearance for loop recorder. she is in [facility] twice per week for memory and PT. she plays tennis and is usually very active. OBJECTIVE: pending brain mri youth nutritional monitor: nsr 80s ekg 10/05: nsr 79, qtc 431 found to have a uti, given ceftriaxone. will order UC. Vital Signs Period Temp Pulse Resp BP Sys/Hoffmann Pulse Ox Last 24 Hr 97.8 F-98.2 F 67-85 12-20 109-136/73-92 97-99 GENERAL: The patient is awake, alert, and fully oriented, in no acute distress. HEAD: Normal with no signs of trauma. EYES: PERRL, extraocular movements intact, sclera anicteric, conjunctiva clear. No ptosis. ENT: Ears normal, nares patent, oropharynx clear without exudates, moist mucous membranes. NECK: Trachea midline, full range of motion, supple. LUNGS: Breath sounds equal, clear to auscultation bilaterally, no wheezes HEART: Regular rate and rhythm, ABDOMEN: Soft, nontender, nondistended, normoactive bowel sounds, no guarding, no rebound, no hepatosplenomegaly, no masses. EXTREMITIES: no edema. NEUROLOGICAL: Normal speech, gait not observed. PSYCH: Normal mood, normal affect. SKIN: Warm, dry, normal turgor, no rashes or lesions noted Laboratory Results - last 24 hr 10/05/18 10/05/18 10/05/18 17:11 17:30 17:30 WBC 6.2 RBC 4.23 Hgb 13.0 Hct 38.8 MCV 91.7 MCH 30.7 MCHC 33.5 RDW 14.9 Plt Count 189 MPV 8.8 Absolute Neuts (auto) 3.6 Neutrophils % 58.6 Lymphocytes % 32.6 Monocytes % 6.4 Eosinophils % 1.5 Basophils % 0.9 Nucleated RBC % 0 ESR PT with INR INR Sodium 140 Potassium 4.2 Chloride 107 Carbon Dioxide 26 Anion Gap 6 L BUN 13 Creatinine 1.0 Est GFR (CKD-EPI)AfAm 62.49 Est GFR (CKD-EPI)NonAf 53.92 POC Glucometer 87 Random Glucose 81 Calcium 9.2 Phosphorus Magnesium Total Bilirubin 0.5 AST 15 ALT 18 Alkaline Phosphatase 63 Creatine Kinase 125 Troponin I < 0.02 C-Reactive Protein Total Protein 7.0 Albumin 4.2 Triglycerides Cholesterol Total LDL Cholesterol HDL Cholesterol Vitamin B12 Urine Color Urine Appearance Urine pH Ur Specific [place] Urine Protein Urine Glucose (UA) Urine Ketones Urine Blood Urine Nitrite Urine Bilirubin Urine Urobilinogen Ur Leukocyte Esterase Urine WBC (Auto) Urine RBC (Auto) Urine Casts (Auto) U Epithel Cells (Auto) Urine Bacteria (Auto) Blood Type Antibody Screen 10/05/18 10/05/18 10/05/18 17:30 17:30 17:30 WBC RBC Hgb Hct MCV MCH MCHC RDW Plt Count MPV Absolute Neuts (auto) Neutrophils % Lymphocytes % Monocytes % Eosinophils % Basophils % Nucleated RBC % ESR PT with INR 13.00 INR 1.10 H Sodium Potassium Chloride Carbon Dioxide Anion Gap BUN Creatinine Est GFR (CKD-EPI)AfAm Est GFR (CKD-EPI)NonAf POC Glucometer Random Glucose Calcium Phosphorus Magnesium Total Bilirubin AST ALT Alkaline Phosphatase Creatine Kinase Troponin I C-Reactive Protein Total Protein Albumin Triglycerides 72 Cholesterol 148 Total LDL Cholesterol 74 HDL Cholesterol 57 Vitamin B12 Urine Color Urine Appearance Urine pH Ur Specific [place] Urine Protein Urine Glucose (UA) Urine Ketones Urine Blood Urine Nitrite Urine Bilirubin Urine Urobilinogen Ur Leukocyte Esterase Urine WBC (Auto) Urine RBC (Auto) Urine Casts (Auto) U Epithel Cells (Auto) Urine Bacteria (Auto) Blood Type O POSITIVE Antibody Screen Negative 10/05/18 10/05/18 10/05/18 17:30 17:30 18:58 WBC RBC Hgb Hct MCV MCH MCHC RDW Plt Count MPV Absolute Neuts (auto) Neutrophils % Lymphocytes % Monocytes % Eosinophils % Basophils % Nucleated RBC % ESR 5 PT with INR INR Sodium Potassium Chloride Carbon Dioxide Anion Gap BUN Creatinine Est GFR (CKD-EPI)AfAm Est GFR (CKD-EPI)NonAf POC Glucometer Random Glucose Calcium Phosphorus Magnesium Total Bilirubin AST ALT Alkaline Phosphatase Creatine Kinase Troponin I C-Reactive Protein < 0.3 Total Protein Albumin Triglycerides Cholesterol Total LDL Cholesterol HDL Cholesterol Vitamin B12 3804 H Urine Color Yellow Urine Appearance Clear Urine pH 7.0 Ur Specific [place] 1.007 L Urine Protein Negative Urine Glucose (UA) Negative Urine Ketones Negative Urine Blood Negative Urine Nitrite Negative Urine Bilirubin Negative Urine Urobilinogen 0.2 Ur Leukocyte Esterase 3+ H Urine WBC (Auto) 8 Urine RBC (Auto) 1 Urine Casts (Auto) 0 U Epithel Cells (Auto) 2.3 Urine Bacteria (Auto) 13.5 Blood Type Antibody Screen 10/06/18 10/06/18 05:35 05:35 WBC 4.7 RBC 3.78 Hgb 11.8 Hct 34.9 MCV 92.2 MCH 31.1 MCHC 33.7 RDW 14.9 Plt Count 170 MPV 9.2 Absolute Neuts (auto) Neutrophils % Lymphocytes % Monocytes % Eosinophils % Basophils % Nucleated RBC % ESR PT with INR INR Sodium 141 Potassium 4.1 Chloride 109 H Carbon Dioxide 28 Anion Gap 5 L BUN 12 Creatinine 1.1 Est GFR (CKD-EPI)AfAm 55.69 Est GFR (CKD-EPI)NonAf 48.05 POC Glucometer Random Glucose 98 Calcium 8.8 Phosphorus 3.9 Magnesium 2.4 Total Bilirubin AST ALT Alkaline Phosphatase Creatine Kinase Troponin I C-Reactive Protein Total Protein Albumin Triglycerides Cholesterol Total LDL Cholesterol HDL Cholesterol Vitamin B12 Urine Color Urine Appearance Urine pH Ur Specific [place] Urine Protein Urine Glucose (UA) Urine Ketones Urine Blood Urine Nitrite Urine Bilirubin Urine Urobilinogen Ur Leukocyte Esterase Urine WBC (Auto) Urine RBC (Auto) Urine Casts (Auto) U Epithel Cells (Auto) Urine Bacteria (Auto) Blood Type Antibody Screen Active Medications Generic Name Dose Route Start Last Admin Trade Name Jhq PRN Reason Stop Dose Admin Ascorbic Acid 250 mg 10/06/18 10:00 Vitamin C - PO DAILY JD Aspirin 81 mg 10/06/18 10:00 Ecotrin - PO DAILY JD Sodium Chloride 1,000 mls @ 42 mls/hr 10/05/18 17:15 10/05/18 17:35 Normal Saline - IV 42 mls/hr ASDIR JD Administration Ceftriaxone Sodium 1 gm/ 100 mls @ 200 mls/hr 10/06/18 04:30 10/06/18 05:11 Dextrose IVPB 10/07/18 04:29 200 mls/hr ONCE JD Administration Pantoprazole Sodium 40 mg 10/06/18 10:00 Protonix - PO DAILY JD Ranitidine HCl 150 mg 10/06/18 10:00 Zantac - PO DAILY JD Rosuvastatin Calcium 40 mg 10/05/18 23:00 10/05/18 23:22 Crestor - PO 40 mg HS JD Administration ASSESSMENT/PLAN: Patient is a 78 yo female with PMHx of prior CVA, hyperlipidemia, hld, schafer' s esophagus admitted following an episode of dizziness, instability walking, and some slurred speech that started on 10/05 at 1pm. She states that she felt "off" and "shaky" at that time and her noticed she was "a little wobbly " . Patient is followed by Dr. Patricia who has been consulted. Problem List - Problems (1) TIA (transient ischemic attack) Assessment/Plan: Patient's symptoms concerning for possible TIA. Brain MRI re assuring as it shows no acute infarct, with a chronic right frontal subcortical white matter infarct which was seen on MRi done 06/14/2018. On Crestor, continue asa, plavix. Neuro follow up for continue dual therapy. Patient reports that the her gait disturbance has been going on for a few days and followed up with neuro last week. However, her gait worsened and she became concerned. will order PT, maintain on fall precautions. Dr. Patricia consulted. Will check orthostatics. She denies any dizziness, difficulty with swallowing, any upper ext weakness or visual defect. Code(s): G45.9 - TRANSIENT CEREBRAL ISCHEMIC ATTACK, UNSPECIFIED (2) Cerebrovascular accident (CVA) Assessment/Plan: CVA on 06/13/2018 per brain MRI done at that time. Brain MRi 10/06/18 shows no acute infarct. Code(s): I63.9 - CEREBRAL INFARCTION, UNSPECIFIED Qualifiers: CVA mechanism: other Qualified Code(s): I63.89 - Other cerebral infarction (3) Hypertension Assessment/Plan: Continue home medications with parameters of BP to hold if systolic <100. orthostatics ordered Code(s): I10 - ESSENTIAL (PRIMARY) HYPERTENSION (4) Hyperlipidemia Assessment/Plan: On Crestor Code(s): E78.5 - HYPERLIPIDEMIA, UNSPECIFIED (5) Unsteady gait Assessment/Plan: For a physical therapy evaluation. fall precautions. She follows up at [facility] Twice weekly for physical therapy and OT therapy since her last stroke. Code(s): R26.81 - UNSTEADINESS ON FEET (6) Back pain Assessment/Plan: denies any back pain currently. has tylenol prn Code(s): M54.9 - DORSALGIA, UNSPECIFIED Qualifiers: Back pain location: thoracic back pain Chronicity: unspecified Back pain laterality: left Qualified Code(s): M54.6 - Pain in thoracic spine (7) Urinary tract infection Assessment/Plan: + 3 leuks with WBC 8. ordered for a UC which is pending. continue ceftriaxone. Code(s): N39.0 - URINARY TRACT INFECTION, SITE NOT SPECIFIED (8) Prophylactic measure Assessment/Plan: fen PT evaluation monitor electrolytes soft diet, awaiting swallow evaluation full code SCDs Code(s): Z29.9 - ENCOUNTER FOR PROPHYLACTIC MEASURES, UNSPECIFIED Visit type - Emergency Visit Emergency Visit: Yes ED Registration Date: 10/05/18 Care time: The patient presented to the Emergency Department on the above date and was hospitalized for further evaluation of their emergent condition. - New Patient This patient is new to me today: Yes Date on this admission: 10/06/18 - Critical Care Critical Care patient: No - Discharge Referral Referred to [facility] Med [facility].C.: No
[2018-10-06] MEDS: ASPIRIN COATED 81 MG TABLET.EC PO SCH (11:22)
[2018-10-06] MEDS: RANITIDINE HCL 150 MG TABLET (FP) PO SCH (11:22)
[2018-10-06] MEDS: PANTOPRAZOLE 40 MG TABLET (FP) PO SCH (11:23)
[2018-10-06] MEDS: ASCORBIC ACID 250 MG TABLET (FP) PO SCH (11:23)
--- NOTE | 2018-10-06 11:54 | PN ---
Progress Note, Physician History of Present Illness: THE NOTE CLEARLY STATES MS. CHIN HAS A NEUROLOGIST ---DR WOLF. PLEASE RESPECT CONTINUITY OF CARE AND CALL BACK SAME NEUROLGIST for admissions. PLEASE CALL DR WOLF FOR CONSULT. - Current Medication List Current Medications: Active Medications Ascorbic Acid (Vitamin C -) 250 mg PO DAILY [facility] Last Admin: 10/06/18 11:23 Dose: 250 mg Aspirin (Ecotrin -) 81 mg PO DAILY JD Last Admin: 10/06/18 11:22 Dose: 81 mg Ceftriaxone Sodium 1 gm/ (Dextrose) 100 mls @ 200 mls/hr IVPB ONCE JD Stop: 10/07/18 04:29 Last Admin: 10/06/18 05:11 Dose: 200 mls/hr Pantoprazole Sodium (Protonix -) 40 mg PO DAILY [facility] Last Admin: 10/06/18 11:23 Dose: 40 mg Ranitidine HCl (Zantac -) 150 mg PO DAILY [facility] Last Admin: 10/06/18 11:22 Dose: 150 mg Rosuvastatin Calcium (Crestor -) 40 mg PO HS JD Last Admin: 10/05/18 23:22 Dose: 40 mg - Objective Vital Signs: Vital Signs Temperature 98 F 10/06/18 05:29 Pulse Rate 68 10/06/18 05:29 Respiratory Rate 20 10/06/18 05:29 Blood Pressure 110/76 10/06/18 05:29 O2 Sat by Pulse Oximetry (%) 98 10/06/18 03:53 Labs: CBC, BMP 10/06/18 05:35 10/06/18 05:35 INR, PTT INR 1.10 (0.83-1.09) H 10/05/18 17:30
--- NOTE | 2018-10-06 12:27 | EKG ---
Test Reason : Blood Pressure : / mmHG Vent. Rate : 079 BPM Atrial Rate : 079 BPM P-R Int : 156 ms QRS Dur : 076 ms QT Int : 376 ms P-R-T Axes : 061 017 036 degrees QTc Int : 431 ms NORMAL SINUS RHYTHM NORMAL ECG WHEN COMPARED WITH ECG OF 13-JUN-2018 09:41, NO SIGNIFICANT CHANGE WAS FOUND Confirmed by MORENA WHITE MD ([id number]) on 10/06/2018 12:27:24 PM Referred By: Confirmed By:MORENA WHITE MD
[2018-10-06] MEDS: CLOPIDOGREL BISULFATE 75 MG TABLET (FP) PO SCH (17:00)
[2018-10-06] MEDS ORDERED: ROSUVASTATIN CA 20 MG TABLET (FP) PO SCH (22:00)
[2018-10-07] MEDS: ROSUVASTATIN CA 20 MG TABLET (FP) PO SCH (06:11)
[2018-10-07 09:35] LABS: BASO % 0.8 % (0-2.0); EOS % 1.7 % (0-4.5); HEMATOCRIT 39.5 % (32.4-45.2); LYMPH % 20.5 % (8-40); MCH 30.3 pg (25.7-33.7); MEAN CELL VOLUME 91.8 fl (80-96); MEAN PLT VOLUME 8.5 fl (7.5-11.1); MONO % 5.6 % (3.8-10.2); NEUT % 71.4 % (42.8-82.8); PLATELET COUNT 177 K/MM3 (134-434); RDW 14.8 % (11.6-15.6); WHITE BLOOD COUNT 7.2 K/mm3 (4.0-10.0)
[2018-10-07] MEDS ORDERED: amLODIPine BESYLATE 5 MG TABLET (FP) PO SCH (10:00)
[2018-10-07] MEDS ORDERED: VALSARTAN 160 MG TABLET (UD) PO SCH (10:00)
[2018-10-07 10:10] LABS: BILIRUBIN,TOTAL 0.4 mg/dL (0.2-1); CALCIUM 9.3 mg/dL (8.5-10.1); MAGNESIUM 2.6 mg/dL (1.8-2.4); POTASSIUM 3.7 mmol/L (3.5-5.1); TOT PROT 6.8 g/dl (6.4-8.2)
--- NOTE | 2018-10-07 10:50 | CONSULT ---
Admitting History and Physical - Primary Care Physician PCP: Adriane Navas - Admission History of Present Illness: 78 yo female with PMH Prior CVA, HLD, HTN?, Puckett's esophagus admitted following an episode of dizziness and instability walking . Selected Entries 10/06/18 10/06/18 10/06/18 03:53 05:29 11:00 Breakfast Lunch Supper Temperature 98.2 F 98 F 98.2 F 10/06/18 10/06/18 10/06/18 14:00 17:00 20:36 Breakfast 100% Lunch 100% Supper 100% Temperature 98.8 F 98.4 F 10/06/18 10/07/18 10/07/18 22:00 01:11 06:00 Breakfast Lunch Supper Temperature 98 F 98.3 F 97.9 F Laboratory Tests 10/07/18 05:30 WBC 7.2 Improved since evaluated by me during May admission. 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 [place]) - General Mental Status: Alert and Oriented, Awake and Alert, Able to Follow Commands, Forgetful Attention: Intact Ability to Follow Directions: Excellent Head/Neck Control: WFL - Hearing Hearing: Normal Hearing Aide: No With Patient: No Speech Evaluation - Communication Primary Language: [place] Communication: Yes: Within Normal Limits Oral Expression Ability: Yes: No Impairment - Speech Production Able to Make Needs Known: Yes: WNL Intelligibility: Yes: WNL - Speech Characteristics Voice Loudness: Normal Voice Pitch: Yes: Normal Voice Phonatory-based Quality: Yes: Normal Speech Pattern: Normal Speech Clarity: < 100% Nasal Resonance: Normal Articulation: Yes: Precise, Imprecise (slight. Bit left lateral portion of tongue while chewing sandswich. red) Rate of Speech: Intact - Language/Auditory Comprehension Follows: Yes: 2 Stage Simple Commands Observation: Able to respond to yes/no queries: Yes, Yes/No Confusion: No, Comprehends Conversational Speech: Yes - Language/Verbal Expression Able to Respond to Simple Queries: Yes: WNL Able to Communicate Wants and Needs: Yes: WNL Functional Communication Status: Yes: WNL - Memory/Perception Short Term Memory: Yes: Mildly Impaired - Swallow Evaluation/Bedside Assessment Oral Secretions: Yes: WFL Dentition: Yes: Adequate Facial Symmetry at Rest: Facial Droop Left (slight, baseline) Facial Symmetry on Retraction: Symmetrical Against Resistance Opening: Normal Against Resistance Closing: Normal Pucker Lips: Normal Smile: Normal Lingual Movement: Normal, Symmetric Lingual Speed of Movement: Normal Lingual Movement Strgth Against Opposition: Normal Lingual Movement Characteristics: Normal Velopharyngeal Movement: Normal Laryngeal Elevation: WFL Laryngeal Movement: Able to Palpate Rate of Intake: WFL Bolus Size: WFL Labial Seal: WFL Chewing: WFL Oral Prep Time: WFL A-P Transit: WFL Pocketing: None Timing of Swallow: WFL Coughing/Throat Clear: No Change in Voice: No Recommendations - Speech Evaluation, Impression/Plan Impression: Speech, language , cognition, swallowing is at baseline. Pt reports ST memory deficits which Dr. Christiansen is aware of. Seen By Dr. Christiansen last Sunday. - Disposition Discharge to: Home with Assist - Dysphagia Impressions/Plan Swallowing Skills: WFL Dysphagia Impressions: No Impairment *Silent aspiration: cannot be R/O at bedside - Recommendations Diet Consistency: Regular Medication Administration: Whole with water Liquids: Thin Liquids
[2018-10-07] MEDS: ASPIRIN COATED 81 MG TABLET.EC PO SCH (10:57)
[2018-10-07] MEDS: CLOPIDOGREL BISULFATE 75 MG TABLET (FP) PO SCH (10:57)
[2018-10-07] MEDS: PANTOPRAZOLE 40 MG TABLET (FP) PO SCH (10:58)
[2018-10-07] MEDS: ASCORBIC ACID 250 MG TABLET (FP) PO SCH (10:58)
[2018-10-07] MEDS: RANITIDINE HCL 150 MG TABLET (FP) PO SCH (10:58)
[2018-10-07] MEDS ORDERED: CEFUROXIME AXETIL 250 MG TABLET PO SCH (11:15)
--- NOTE | 2018-10-07 11:43 | DS ---
Physical Examination Vital Signs: Vital Signs Temperature 97.9 F 10/07/18 06:00 Pulse Rate 69 10/07/18 06:00 Respiratory Rate 20 10/07/18 06:00 Blood Pressure 119/78 10/07/18 06:00 O2 Sat by Pulse Oximetry (%) 98 10/07/18 03:00 Constitutional: Yes: Well Nourished Eyes: Yes: WNL HENT: Yes: WNL Neck: Yes: Supple Cardiovascular: Yes: Regular Rate and Rhythm Respiratory: Yes: Regular Gastrointestinal: Yes: Normal Bowel Sounds Breast(s): Yes: WNL Extremities: Yes: WNL Integumentary: Yes: WNL Wound/Incision: Yes: Clean/Dry Neurological: Yes: WNL ...Motor Strength: WNL Psychiatric: Yes: WNL Labs: CBC, BMP 10/07/18 05:30 10/07/18 09:15 Discharge Summary Reason For Visit: CEREBROVASCULAR ACCIDENT (CVA) Current Active Problems Hyperlipidemia (Acute) Hypertension (Acute) Prophylactic measure (Acute) TIA (transient ischemic attack) (Acute) Unsteady gait (Acute) Urinary tract infection (Acute) Hospital Course: Patient is a 78 yo female with PMHx of prior CVA, hyperlipidemia, hld, schafer' s esophagus admitted following an episode of dizziness, instability walking, and some slurred speech that started on 10/05 at 1pm. She states that she felt "off" and "shaky" at that time and her noticed she was "a little wobbly " . Patient is followed by Dr. Patricia who has been consulted. HOSPITAL COURSE BY PROBLEM LIST: TIA (transient ischemic attack). resolved. Patient's symptoms on admission concerning for possible TIA. Brain MRI re assuring as it shows no acute infarct, with a chronic right frontal subcortical white matter infarct which was seen on MRi done 06/14/2018. On Crestor, continue asa (full strength 325mg), plavix. Neuro evaluated, notes reviewed. Patient to follow up as an outpatient. Physical therapy evaluated, patient with steady gait. Seen ambulating the hallways without assistive devices. She denies any dizziness, difficulty with swallowing, any upper ext weakness or visual defect. Hypertension. controlled. Continue home medications. HLD. on ASA, Crestor and Plavix (dual therapy). Unsteady gait. stable gait. PT evaluated. Patient follows up at [facility] Twice weekly for physical therapy and OT therapy since her last stroke. Urinary tract infection. Continue Ceftin x 3 more days. Patient is asymptomatic. DISCHARGE PLAN: Discharge home with PCP and Neuro follow up. Condition: Stable - Instructions Diet, Activity, Other Instructions: Mrs Espitia: You will be sent home today. You were admitted to rule out acute stroke and a brain MRi 10/06/18 shows no acute stroke. Here is your medications list: BLOOD PRESSURE MEDICATIONS: Norvasc (Amlodopine) 5mg - ONCE PER DAY FOR BLOOD PRESSURE CONTROL Diovan 160mg - ONCE PER DAY FOR BLOOD PRESSURE CONTROL STROKE PREVENTION: Plavix 75mg - Once per day for STROKE PREVENTION Aspirin 81mg - Once per day for STROKE PREVENTION Crestor 209mg - once per day AT BEDTIME for cholesterol prevention STOMACH PREVENTION: Zantac 150mg- twice per day for stomach protection URINARY TRACT INFECTION: Ceftin 250mg TWICE PER DAY FOR 3 MORE DAYS FOR URINARY TRACT INFECTION. What are symptoms of stroke? -Numbness or weakness in your face, arm, or leg, especially on one side. -Confusion or trouble understanding other people. -Difficulty speaking. -Trouble seeing with one or both eyes. -If your experience of any of these symptoms, please seek attention immediately by calling 911. Thank you for allowing us for caring for you. Referrals: Shayy Patricia MD [Staff Physician] - 1 Week Disposition: HOME - Home Medications Comprehensive Discharge Medication List: Ambulatory Orders Valsartan [Diovan] 160 mg PO DAILY 05/24/11 Ascorbic Acid [Vitamin C -] 250 mg PO DAILY 07/12/16 Pantoprazole Sodium 40 mg PO PRN PRN 07/12/16 Ranitidine [Zantac -] 150 mg PO DAILY 06/14/18 Rosuvastatin [Crestor -] 20 mg PO HS #30 tablet 06/14/18 Amlodipine Besylate [Norvasc -] 5 mg PO DAILY 10/05/18 Clopidogrel Bisulfate [Plavix] 75 mg PO DAILY 10/05/18 Aspirin Coated [Ecotrin -] 81 mg PO DAILY #60 tablet.ec 10/07/18 Cefuroxime Axetil [Ceftin -] 250 mg PO BID #6 tablet 10/07/18 This patient is new to me today: Yes Date on this admission: 10/07/18 Emergency Visit: Yes ED Registration Date: 10/05/18 Care time: The patient presented to the Emergency Department on the above date and was hospitalized for further evaluation of their emergent condition. Critical Care patient: No - Discharge Referral Referred to [facility] No
[2018-10-07 12:12] VITALS: BP 128/80; PULSE 80; TEMP 98.1
--- NOTE | 2018-10-07 13:14 | CON.NEURO ---
Consult Consult Specialty:: Harshad Referred by:: PCP - History of Present Illness History of Present Illness: 78-year-old right-handed -Cymraes woman with history of Coronary artery disease Osteoarthritis Mild cognitive impairment Gait dysfunction Patient was at her usual status of health until 2 days ago when she presented to the hospital Patient was evaluated in the emergency room due to sudden onset of dizziness CAT scan of the head was reported as negative patient was admitted to telemetry I saw the patient last Sunday for memory problem patient was evaluated in the presence of her brother and her since admission to the floor no recurrence of symptoms patient denies any associated symptoms of chest pain palpitations double vision - History Source History Provided By: Patient Limitations to Obtaining History: No Limitations - 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: Peripheral Neuropathy (patient says that her toes have been numb for years) Cardio/Vascular: Yes: HTN - Alcohol/Substance Use Hx Alcohol Use: No - Smoking History Smoking history: Former smoker Have you smoked in the past 12 months: No If you are a former smoker, when did you quit?: 30 YEARS AGO Home Medications - Allergies Allergies/Adverse Reactions: Allergies Allergy/AdvReac Type Severity Reaction Status Date / Time shellfish derived Allergy Intermediate Rash Verified 10/05/18 18:30 IV CONTRAST DYE AdvReac Intermediate Vomiting Uncoded 10/05/18 18:30 - Home Medications Home Medications: Ambulatory Orders Valsartan [Diovan] 160 mg PO DAILY 05/24/11 Ascorbic Acid [Vitamin C -] 250 mg PO DAILY 07/12/16 Pantoprazole Sodium 40 mg PO PRN PRN 07/12/16 Ranitidine [Zantac -] 150 mg PO DAILY 06/14/18 Rosuvastatin [Crestor -] 20 mg PO HS #30 tablet 06/14/18 Amlodipine Besylate [Norvasc -] 5 mg PO DAILY 10/05/18 Clopidogrel Bisulfate [Plavix] 75 mg PO DAILY 10/05/18 Aspirin Coated [Ecotrin -] 81 mg PO DAILY #60 tablet.ec 10/07/18 Cefuroxime Axetil [Ceftin -] 250 mg PO BID #6 tablet 10/07/18 Family Disease History - Family Disease History Family History: Denies (CVA) Review of Systems - Review of Systems Constitutional: reports: No Symptoms Eyes: reports: No Symptoms Neurological: reports: Headache, Incoordination, Numbness Physical Exam-Neuro Vital Signs: Vital Signs Temperature 98.1 F 10/07/18 10:00 Pulse Rate 80 10/07/18 10:00 Respiratory Rate 18 10/07/18 10:00 Blood Pressure 128/80 10/07/18 10:00 O2 Sat by Pulse Oximetry (%) 98 10/07/18 11:00 Constitutional: Yes: Well Nourished Neck: Yes: WNL Cardiovascular: Yes: WNL Labs: CBC, BMP 10/07/18 05:30 10/07/18 09:15 INR, PTT INR 1.10 (0.83-1.09) H 10/05/18 17:30 - Neuro Exam Level Of Consciousness: Yes: Oriented to Person, Oriented to Place, Oriented to Time Eyes: Yes: PERRLA Speech: WNL Dominant Hand: Right Cranial Nerves II-XII Intact: Yes Gag: Present DTR's: 1+ Left Bicep, 1+ Right Bicep, 1+ Left Brachioradialis, 1+ Right Brachioradialis Response to light touch: Normal Response to pain prick: Normal Response to temperature: Normal Response to vibration: Normal Motor Strength: 3/5: Left Arm, Right Arm, Left Leg, Right Leg Gait: Deferred Imaging - Results Cat Scan: Image Reviewed MRI: Image Reviewed Problem List - Problems (1) TIA (transient ischemic attack) Assessment/Plan: episode of dizziness not associated with any brainstem function disorder Questionable TIA Questionable altered glycemic control Rule out cardiac arrhythmia 1. Neurologically patient can be discharged 2. Full aspirin 3. Review the echocardiogram Code(s): G45.9 - TRANSIENT CEREBRAL ISCHEMIC ATTACK, UNSPECIFIED
== END 2018-10-07 12:20 | disposition home or self-care (01) ==
LOC: JER 16:01 → INTOOBSV 18:15 → JERBED 18:15 → J4W 20:51
PROVIDERS: ADMIT Internal Medicine; ATTEND Nurse Practitioner Family
PROC: 3E03329 Introduction of Other Anti-infective into Peripheral Vein, Percutaneous Approach (ICD-10-PCS; principal; 2018-10-05)
PROC: 3E0337Z Introduction of Electrolytic and Water Balance Substance into Peripheral Vein, Percutaneous Approach (ICD-10-PCS; 2018-10-05)
DX: G45.9 Transient cerebral ischemic attack, unspecified (principal); I10 Essential (primary) hypertension; E78.5 Hyperlipidemia, unspecified; K22.70 Barrett's esophagus without dysplasia; E26.81 Bartter's syndrome; M54.6 Pain in thoracic spine; N39.0 Urinary tract infection, site not specified; Z29.9 Encounter for prophylactic measures, unspecified; Z86.73 Personal history of transient ischemic attack (TIA), and cerebral infarction without residual deficits; Z91.013 Allergy to seafood; Z91.041 Radiographic dye allergy status
CPT/HCPCS: 36415; 70450-TC; 70551-TC; 71045-TC-FY; 80048; 80053; 81003; 82465; 82550; 82607; 82962; 83718; 83721; 83735; 84100; 84478; 84484; 85025; 85027; 85610; 85651; 86140; 86593; 86850; 86900; 86901; 87086; 93005; 93010; 96365; 97116-GP; 97161-GP; 99285-25; G0378; J7030

== ENCOUNTER 2020-03-02 06:42 | Inpatient (IN) | payer OTHER ==
--- OUTSIDE RECORDS SUMMARY | 2020-02-10 14:04 | XMS ---
:1940 Author Organization [facility] Support Name Relationship Address Phone RE Unavailable Unavailable Unavailable PETRA CHIN FAMILY/OTHER [address] [facility] [address] MACIEL MUÑOZ BROTHER [address] [facility] [place] [address] Re-disclosure Warning The records that you are about to access may contain information from federally- assisted alcohol or drug abuse programs. If such information is present, then the following federally mandated warning applies: This information has been disclosed to you from records protected by federal confidentiality rules (42 CFR part 2). The federal rules prohibit you from making any further disclosure of this information unless further disclosure is expressly permitted by the written consent of the person to whom it pertains or as otherwise permitted by 42 CFR part 2. A general authorization for the release of medical or other information is NOT sufficient for this purpose. The Federal rules restrict any use of the information to criminally investigate or prosecute any alcohol or drug abuse patient.The records that you are about to access may contain highly sensitive health information, the redisclosure of which is protected by Article 27-F of the [facility] Public Health law. If you continue you may haveaccess to information: Regarding HIV / AIDS; Provided by facilities licensed or operated by the [facility] Office of Mental Health; or Provided by the [facility] Office for People With Developmental Disabilities. If such information is present, then the following [facility] mandated warning applies: This information has been disclosed to you from confidential records which are protected by state law. State law prohibits you from making any further disclosure of this information without the specific written consent of the person to whom it pertains, or as otherwise permitted by law. Any unauthorized further disclosure in violation of state law may result in a fine or usp sentence or both. A general authorization for the release of medical or other information is NOT sufficient authorization for further disclosure. 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 Procedure
--- OUTSIDE RECORDS SUMMARY | 2020-03-02 06:45 | XMS ---
:1940 Author Organization [facility] Support Name Relationship Address Phone RE, RETIRED Unavailable Unavailable Unavailable RE Unavailable Unavailable Unavailable PETRA CHIN FAMILY/OTHER [address] [place] [address] MACIEL MUÑOZ BROTHER [address] [facility] [place] [id number] Re-disclosure Warning The records that you are [...] is protected by Article 27-F of the [facility] Public Health law. If you continue you may haveaccess to information: Regarding HIV / AIDS; Provided by facilities licensed or operated by the [facility] Office of Mental Health; or Provided by the [facility] Office for People With Developmental Disabilities. If such information is present, then the following [facility] mandated warning applies: This information has [...] law may result in a fine or care home sentence or both. A general authorization for the release of medical or other information is NOT sufficient authorization for further disclosure. 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 Procedure
--- NOTE | 2020-03-02 08:00 | HP ---
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: Peripheral Neuropathy (patient says that her toes have been numb for years) Cardiovascular: Yes: HTN - Current Medications Current Medications: Home Medications Medication Instructions Recorded Valsartan [Diovan] 160 mg PO DAILY 05/24/11 Amlodipine Besylate [Norvasc -] 5 mg PO DAILY 10/05/18 Apixaban [Eliquis] 5 mg PO BID 02/23/20 Rivastigmine Tartrate 4.5 mg PO BID 02/23/20 [Rivastigmine] Rosuvastatin [Crestor -] 20 mg PO DAILY 02/23/20 Vitamin B Comp W-C [Total B with C] 1 each PO DAILY 02/23/20 Satellite Physical Exam - Physical Examination General Appearance: Well Nourished, Well Developed, Alert & Oriented x3 ENT: Clear Lung: Normal air movement Extremities: Other (right knee- +swelling, + ttp, decr rom, nvi, xrays show grade 4 tricompartmental djd) Neurological: Intact, Alert, Oriented Satellite Impression/Plan - Impression/Plan Impression: right knee djd Operative Procedure: right mari tkr Date to be Performed: 03/02/20
[2020-03-02 08:05] VITALS: BMI 24.8
[2020-03-02] MEDS ORDERED: MIDAZOLAM HCL 2 MG/2 ML SINGLE DOSE VIAL ONE ×2 (08:12→08:29)
[2020-03-02] MEDS ORDERED: PROPOFOL 20 ML ONE ×4 (08:13→11:47)
[2020-03-02] MEDS ORDERED: ONDANSETRON 4 MG/2 ML VIAL ONE (08:14)
[2020-03-02] MEDS ORDERED: LIDOCAINE HCL/PF 2% SDV 5ML VIAL ONE (08:14)
[2020-03-02] MEDS ORDERED: DEXAMETHASONE SOD PHOSPHATE 4 MG/1 ML VIAL ONE (08:14)
[2020-03-02] MEDS ORDERED: KETOROLAC TROMETHAMINE 30 MG/1 ML VIAL ONE (08:14)
[2020-03-02] MEDS ORDERED: CELECOXIB 200 MG CAPSULE ONE (08:18)
[2020-03-02] MEDS: CELECOXIB 200 MG CAPSULE PO ONE ×2 (08:20→17:14)
[2020-03-02] MEDS ORDERED: SODIUM CHLORIDE 0.9% P/F 10 ML VIAL IJ ONE ×2 (08:29→08:46)
[2020-03-02] MEDS ORDERED: BUPIVACAINE LIPOSOME/PF (EXPAREL) 266 MG/20 ML VIAL ONE (08:29)
[2020-03-02] MEDS ORDERED: BUPIVACAINE HCL/PF 0.5% (5MG/ML) 10 ML VIAL ONE (08:40)
[2020-03-02] MEDS ORDERED: VANCOMYCIN 1,000 MG VIAL (RESTRICTED TO ID ONLY) ONE (08:41)
[2020-03-02] MEDS ORDERED: ceFAZolin SODIUM 1 GM VIAL ONE ×2 (08:41→08:46)
[2020-03-02] MEDS ORDERED: TRANEXAMIC ACID 1000 MG/10 ML VIAL ONE (08:46)
[2020-03-02] MEDS ORDERED: oxyCODONE HCL 5 MG TABLET PO PRN (09:29)
[2020-03-02] MEDS ORDERED: ONDANSETRON 4 MG/2 ML VIAL IVPUSH PRN ×2 (09:29→09:56)
[2020-03-02] MEDS ORDERED: TRANEXAMIC ACID 1000 MG/10 ML VIAL IVPUSH ONE (09:30)
[2020-03-02] MEDS ORDERED: CEFAZOLIN 2 GM in DEXTROSE 5%-WATER - 50 ML IVPB ONE (09:30)
[2020-03-02] MEDS ORDERED: MAG HYDROX/AL HYDROX/SIMETH 30 ML UNIT-DOSE CUP PO PRN (09:56)
[2020-03-02] MEDS ORDERED: MAGNESIUM HYDROX 2400MG/30ML ORAL SUSPENSION 30 ML CUP PO PRN (09:56)
[2020-03-02] MEDS ORDERED: LACTATED RINGERS SOLUTION 1,000 ML IV SCH (10:00)
[2020-03-02] MEDS ORDERED: RIVASTIGMINE TARTRATE 4.5 MG PO SCH (10:00)
[2020-03-02] MEDS ORDERED: ePHEDrine SULFATE 50 MG/1 ML AMPULE ONE (10:36)
[2020-03-02] MEDS ORDERED: VANCOMYCIN 1,000 MG VIAL (RESTRICTED TO ID ONLY) IVPB ONE (11:15)
--- NOTE | 2020-03-02 11:28 | OP ---
Operative Note - Note: Operative Date: 03/02/20 (jacinta) Pre-Operative Diagnosis: right knee djd Operation: right mari tkr Post-Operative Diagnosis: Same as Pre-op Surgeon: Raymond Garsia Manager Drilling: Steve Cerna Anesthesiologist/RN POST PARTUM: Fuad Duckworth Anesthesia: Spinal, Local Specimens Removed: bone fragments Estimated Blood Loss (mls): 150
[2020-03-02] MEDS ORDERED: ACETAMINOPHEN 1000 MG/100 ML VIAL (NON FORMULARY) IVPB ONE (11:30)
[2020-03-02] MEDS ORDERED: ACETAMINOPHEN INJECTION 100 ML IVPB ONE (11:52)
--- NOTE | 2020-03-02 12:09 | SPEC ---
DATE OF OPERATION: 03/02/2020 PREOPERATIVE DIAGNOSIS: Degenerative joint disease, right knee. POSTOPERATIVE DIAGNOSIS: Degenerative joint disease, right knee. PROCEDURE: Right total knee replacement with robotic-assisted navigation (MAKOplasty). SURGICAL ATTENDING: Raymond Garsia MD FIRE PATROL: CEM Law ANESTHESIA: Regional and spinal. CLOSURE: A cemented Triathlon knee system with a No. 5 femur, No 6 tibia, and No 9 polyethylene, a 32 patella, No. 1 Vicryl fascia, 0 and 2-0 subcutaneous and 3-0 Monocryl subcuticular with skin glue for skin, 4-0 undyed Vicryl for pin sites. ESTIMATED BLOOD LOSS: Negligible. COMPLICATIONS: None. CONDITION: To recovery room in stable condition. DESCRIPTION OF OPERATIVE PROCEDURE: Patient was taken to the operating room on March 02, 2020. Regional and general anesthesia was administered by the anesthesiologist. IV Kefzol and TXA were administered by the anesthesiologist. Well-padded pneumatic tourniquet was placed on the proximal thigh. The right lower extremity was prepped and draped in the usual sterile fashion. The leg was exsanguinated with an Esmarch bandage, and tourniquet was inflated to 275 mmHg. A 12 to 15-cm longitudinal midline incision was incised while centered over the patella. The dissection was carried down to the level of the extensor mechanism with sufficient flaps made to adequately perform the procedure. A medial parapatellar arthrotomy was then performed. We made a cuff of tissue on the patella for later closure. The patella was inverted, the knee was flexed up. The fat pad was excised. The subperiosteal dissection was on the anteromedial proximal tibia around towards the direction of the MCL. The ACL and the PCL were transected and debrided. The meniscal remnants of the medial and lateral meniscus were debrided and removed. This allowed the knee to be able to "be brought forward." The checkpoints were malleted into the tibia and into the femur. Two threaded pins were drilled anteroposteriorly proximal to the knee through the previous incision, through the anterior cortex, then just engaging the posterior cortex. To these pins was assembled the femoral navigation array. One handbreadth below the tibial tubercle, 2 stab incisions were used to drill 2 threaded pins in parallel fashion into the tibia, again through the anterior cortex and just engaging the posterior cortex. To these pins was fastened the tibial arrays. The knee was then registered with the navigation device with center of rotation of the hip, medial and lateral malleoli, both checkpoints, and multiple points on both the femur and the tibia to ensure excellent registration. The navigation device was directed off the "top of the bubbles" on both the femur and the tibia. The navigation passed within less than 0.5 mm to plan. The knee was then thoroughly inspected to remove all osteophytes both medially, laterally, and on the femur and the tibia, and whatever osteophytes were available for dissection. The knee was then taken to extension and to flexion, and stressed in both varus and valgus to assess flexion gaps. The virtual position of the components on the navigation device were then manipulated to optimize the position and to ensure equal gaps in both flexion and extension, and both medially and laterally. The robot was then brought into the field and was registered. The cuts were then made both on the femur and on the tibia as to plan. All osteophytes posteriorly were then removed as well. The gaps were then measured again in flexion and extension to be equal in both flexion and extension and medial and laterally. The femoral notch was then made, as we were doing a posterior stabilizing component, with the appropriate sized box. Trial reduction of the femur achieved excellent [id number] fit. A tibial baseplate of appropriate polyethylene thickness was "floated in the knee." It was ensured to be in the excellent position by navigation devices and was pinned in place. The knee was taken through a range of motion, and found to have excellent stability throughout flexion and extension. The patella was calibrated for thickness and osteotomized down to the appropriate level. The appropriate lollipop was used to drill the lug holes in the patella and the trial button was applied. The knee was taken through a range of motion and found to have excellent tracking of the patella, and patella from full extension to full flexion. Trial components were removed, the keel was punched and drilled, and a sclerotic bone on the tibia was drilled to help with cement interdigitation. The knee was thoroughly irrigated with the pulse antibiotic salvage clerk. The real components were then cemented in using monitored arrangement cement techniques with antibiotic cement, and pressurization and extension. After the cement was hardened, the knee was thoroughly inspected to remove any extra cement. The real polyethylene component was then clipped into place. Range of motion, stability, and tracking were as described earlier. The checkpoints and the pins were removed. The knee was thoroughly irrigated with antibiotic irrigation. Vancomycin powder was placed into the knee for antibiotic prophylaxis. The medial parapatellar arthrotomy was then closed using number 1 Vicryl interrupted suture. After closure of the deep layer, the knee was taken through a range of motion, and found to have excellent stability of the patella with no dislocation and no undue tension on the repair. The subcutaneous was pulse antibiotic irrigated, and was then closed with 2-0 Vicryl, 3-0 Monocryl subcuticular with the skin glue for the skin. The distal tibial pin site was irrigated thoroughly as well and then closed with 4-0 undyed Vicryl. A sterile Aquacel dressing was applied, followed by a Dickinson dressing. Tourniquet was deflated. Total tourniquet time was approximately 75 minutes. No complications. Patient was awakened from anesthesia and transferred to recovery room in stable condition. Postoperative x-rays revealed excellent position of the components. Ana [id number]
[2020-03-02] MEDS: amLODIPine BESYLATE 5 MG TABLET (FP) PO SCH (17:14)
[2020-03-02] MEDS: LACTATED RINGERS SOLUTION 1,000 ML IV SCH (17:14)
[2020-03-02] MEDS: VALSARTAN 160 MG TABLET PO SCH (17:14)
[2020-03-02] MEDS: oxyCODONE HCL 10 MG SUSTAINED ACTING TABLET PO SCH ×2 (17:15→21:41)
[2020-03-02] MEDS: MULTIVITAMINS (DAILY MVI) TABLET (FP) PO SCH (17:15)
[2020-03-02] MEDS: PANTOPRAZOLE 40 MG TABLET PO SCH (17:15)
[2020-03-02] MEDS: CEFAZOLIN 2 GM/D5W 2 GM/50 ML ML IVPB SCH (17:15)
[2020-03-02] MEDS ORDERED: PT OWN MED DRAWER 7, Y5N ONE (20:51)
[2020-03-02] MEDS: ROSUVASTATIN CA 20 MG TABLET (FP) PO SCH (21:39)
[2020-03-02] MEDS: SENNOSIDES/DOCUSATE COMBO (SENNA PLUS) TABLET (UD) PO SCH (21:39)
[2020-03-02] MEDS: RIVASTIGMINE TARTRATE PO SCH (21:40)
[2020-03-03] MEDS: CEFAZOLIN 2 GM/D5W 2 GM/50 ML ML IVPB SCH (02:05)
[2020-03-03 08:24] LABS: HEMATOCRIT 26.9 % (32.4-45.2); HEMOGLOBIN 8.9 GM/dl (10.7-15.3); MCH 31.1 pg (25.7-33.7); MCHC 33.2 g/dl (32.0-36.0); MEAN CELL VOLUME 93.7 fl (80-96); MEAN PLT VOLUME 8.7 fl (7.5-11.1); PLATELET COUNT 165 K/MM3 (134-434); RBC 2.88 M/mm3 (3.60-5.2); RDW 14.1 % (11.6-15.6); WHITE BLOOD COUNT 10.3 K/mm3 (4.0-10.8)
[2020-03-03] MEDS ORDERED: PT OWN MED DRAWER 7, Y5N ONE ×2 (09:24→21:20)
[2020-03-03] MEDS: PANTOPRAZOLE 40 MG TABLET PO SCH (10:39)
[2020-03-03] MEDS: APIXABAN 5 MG TABLET PO SCH ×2 (10:41→21:38)
[2020-03-03] MEDS: MULTIVITAMINS (DAILY MVI) TABLET (FP) PO SCH (10:41)
[2020-03-03] MEDS: SENNOSIDES/DOCUSATE COMBO (SENNA PLUS) TABLET (UD) PO SCH ×2 (10:43→21:38)
[2020-03-03] MEDS: amLODIPine BESYLATE 5 MG TABLET (FP) PO SCH (10:46)
[2020-03-03] MEDS: oxyCODONE HCL 10 MG SUSTAINED ACTING TABLET PO SCH ×2 (10:46→21:39)
[2020-03-03] MEDS: VALSARTAN 160 MG TABLET PO SCH (10:46)
[2020-03-03] MEDS: RIVASTIGMINE TARTRATE PO SCH ×2 (10:46→21:39)
[2020-03-03] MEDS: LACTATED RINGERS SOLUTION 1,000 ML IV SCH (10:47)
[2020-03-03] MEDS: ACETAMINOPHEN 1000 MG/100 ML VIAL (NON FORMULARY) IVPB PRN ×2 (10:49→17:58)
--- NOTE | 2020-03-03 11:22 | PN ---
Progress Note (short form) - Note Progress Note: ANESTHESIA POSTOP 79 YO FEMALE POD#1 S/P RIGHT TOTAL KNEE REPLACEMENT Patient in bed without complaint. Pain adequately controlled. Tolerating PO. VSS, Afebrile Continue current care. Encouraged IS and active participation in PT
--- NOTE | 2020-03-03 11:54 | PN ---
Progress Note (short form) - Note Progress Note: Ortho Pt seen and examined s/p right mari tkr pod #1 Selected Entries 03/03/20 06:00 Temperature 98.2 F Pulse Rate 88 Respiratory 18 Rate Blood Pressure 106/62 Laboratory Tests 03/03/20 07:23 WBC 10.3 Hgb 8.9 L Hct 26.9 L D Plt Count 165 dressing c/d/i, rom 0-40, calf soft, nt nvi a/p PT dvt ppx pain control d/c home tomorrow if stable
[2020-03-03] MEDS: ROSUVASTATIN CA 20 MG TABLET (FP) PO SCH (21:38)
[2020-03-04] MEDS: ACETAMINOPHEN 1000 MG/100 ML VIAL (NON FORMULARY) IVPB PRN (05:58)
[2020-03-04 08:27] LABS: HEMATOCRIT 24.6 % (32.4-45.2); HEMOGLOBIN 8.2 GM/dl (10.7-15.3); MCH 31.2 pg (25.7-33.7); MCHC 33.4 g/dl (32.0-36.0); MEAN CELL VOLUME 93.3 fl (80-96); MEAN PLT VOLUME 8.9 fl (7.5-11.1); PLATELET COUNT 142 K/MM3 (134-434); RBC 2.64 M/mm3 (3.60-5.2); RDW 14.2 % (11.6-15.6); WHITE BLOOD COUNT 10.4 K/mm3 (4.0-10.8)
--- NOTE | 2020-03-04 08:30 | PN ---
Progress Note (short form) - Note Progress Note: Ortho Pt seen and examined s/p right mari tkr pod #2 Selected Entries 03/04/20 06:55 Temperature 98.8 F Pulse Rate 94 H Respiratory 18 Rate Blood Pressure 125/71 Laboratory Tests 03/04/20 07:30 WBC Pending Hgb Pending Hct Pending Plt Count Pending dressing with slight drainage but no to borders, rom 0-40, calf soft, nt nvi a/p PT dvt ppx pain control d/c home today f/u in 1 week
--- NOTE | 2020-03-04 08:31 | DS ---
Physical Examination Vital Signs: Vital Signs Temperature 98.8 F 03/04/20 06:55 Pulse Rate 94 H 03/04/20 06:55 Respiratory Rate 18 03/04/20 06:55 Blood Pressure 125/71 03/04/20 06:55 O2 Sat by Pulse Oximetry (%) 95 03/04/20 06:55 Discharge Summary Problems reviewed: Yes Reason For Visit: OSTEOARTHRITIS Procedures: Principal: right mari tkr Hospital Course: admitted for elective right mari tkr, post-op per protocol, stable for d/c Condition: Good - Instructions Diet, Activity, Other Instructions: Post-op Instructions-Total Knee Replacement Call the office for a follow-up appointment in 1 week - [phone] Resume Chantal. Pain medication was sent into your pharmacy. Apply Graduated Compression Stockings (TEDs) to both lower extremities- remove daily for hygiene ONLY Apply Sequential Compression Device (SCDs) to both Lower extremities remove for PT and hygiene ONLY Apply cold packs to affected area for 15 minutes every 2 hours. Physical Therapist will come to your home for the first 5 days. You will be set up with outpatient PT at your first post-operative visit. Patient may ambulate as tolerated-encourage self care (at least every 2-3 hours while awake) with walker or cane Maintain Aquacel (waterproof) dressing to operative wound (will be removed by surgeon at first office visit) Shower with Aquacel dressing in place-if Aquacel integrity compromised, remove and apply dry sterile dressing and notify Orthopedist. DO NOT SHOWER unless Orthopedists approves without Aquacel dressing CONTACT THE OFFICE FOR ANY CHANGE IN YOUR CONDITION (for example-fever greater than 102 degrees, excessive bleeding from operative site, purulent drainage, severe swelling or pain) GO TO THE EMERGENCY ROOM IF THERE IS A MEDICAL EMERGENCY Knee Precautions: * Keep a rolled towel under affected heel while in bed or chair (to keep knee in extension) * Keep affected leg elevated except during mealtimes * DO NOT PLACE PILLOW UNDER AFFECTED KNEE * If you have any questions, please do not hesitate to call the office - [phone]. Referrals: Raymond Garsia MD [Staff Physician] - Disposition: VNS/HOME HEALTH CARE - Home Medications Comprehensive Discharge Medication List: Ambulatory Orders Valsartan [Diovan] 160 mg PO DAILY 05/24/11 Amlodipine Besylate [Norvasc -] 5 mg PO DAILY 10/05/18 Apixaban [Eliquis] 5 mg PO BID 02/23/20 Rivastigmine Tartrate [Rivastigmine] 4.5 mg PO BID 02/23/20 Rosuvastatin [Crestor -] 20 mg PO DAILY 02/23/20 Vitamin B Comp W-C [Total B with C -] 1 each PO DAILY 02/23/20 Oxycodone HCl/Acetaminophen [Percocet 5-325 mg Tablet -] 1 - 2 tab PO Q6H #50 tab MDD 8 03/02/20
[2020-03-04] MEDS ORDERED: PT OWN MED DRAWER 7, Y5N ONE ×2 (10:06→21:57)
[2020-03-04] MEDS: oxyCODONE HCL 10 MG SUSTAINED ACTING TABLET PO SCH ×2 (11:04→22:05)
[2020-03-04] MEDS: VALSARTAN 160 MG TABLET PO SCH (11:04)
[2020-03-04] MEDS: amLODIPine BESYLATE 5 MG TABLET (FP) PO SCH (11:04)
[2020-03-04] MEDS: LACTATED RINGERS SOLUTION 1,000 ML IV SCH (11:04)
[2020-03-04] MEDS: RIVASTIGMINE TARTRATE PO SCH ×2 (11:06→22:05)
[2020-03-04] MEDS: PANTOPRAZOLE 40 MG TABLET PO SCH (11:06)
[2020-03-04] MEDS: MULTIVITAMINS (DAILY MVI) TABLET (FP) PO SCH (11:06)
[2020-03-04] MEDS: APIXABAN 5 MG TABLET PO SCH ×2 (11:06→22:05)
[2020-03-04] MEDS: SENNOSIDES/DOCUSATE COMBO (SENNA PLUS) TABLET (UD) PO SCH ×2 (11:06→22:06)
[2020-03-04] MEDS ORDERED: SODIUM CHLORIDE 500 ML IV STA (11:41)
--- NOTE | 2020-03-04 11:42 | CONSULT ---
Consultation: REQUESTING PROVIDER: Dr. Garsia CONSULT REQUEST: We have been asked to medically evaluate this patient for post- operative hypotension. HISTORY OF PRESENT ILLNESS: 79 year-old female with a [facility] signficant for HTN, HLD, h/o CVA/TIA, Puckett's esophagus, and right knee DJD s/p right PETROS [place] knee replacement on 03/02/[address] Garsia. On POD #1 patient became hypotensive during physical therapy. On POD #2, she again became hypotensive and lightheaded during physical therapy. REVIEW OF SYSTEMS: CONSTITUTIONAL: Absent: fever, chills, diaphoresis, generalized weakness, malaise, loss of appetite, weight change HEENT: Absent: rhinorrhea, nasal congestion, throat pain, throat swelling, difficulty swallowing, mouth swelling, ear pain, eye pain, visual changes CARDIOVASCULAR: Absent: chest pain, syncope, palpitations, irregular heart rate, lightheadedness, peripheral edema RESPIRATORY: Absent: cough, shortness of breath, dyspnea with exertion, orthopnea, wheezing, stridor, hemoptysis GASTROINTESTINAL: Absent: abdominal pain, abdominal distension, nausea, vomiting, diarrhea, constipation, melena, hematochezia GENITOURINARY: Absent: dysuria, frequency, urgency, hesitancy, hematuria, flank pain, genital pain MUSCULOSKELETAL: Absent: myalgia, arthralgia, joint swelling, back pain, neck pain SKIN: Absent: rash, itching, pallor HEMATOLOGIC/IMMUNOLOGIC: Absent: easy bleeding, easy bruising, lymphadenopathy, frequent infections ENDOCRINE: Absent: unexplained weight gain, unexplained weight loss, heat intolerance, cold intolerance NEUROLOGIC: +lightheadedness Absent: headache, focal weakness or paresthesias, dizziness, unsteady gait, seizure, mental status changes, bladder or bowel incontinence PSYCHIATRIC: Absent: anxiety, depression, suicidal or homicidal ideation, hallucinations. PHYSICAL EXAMINATION Vital Signs - 24 hr 03/03/20 03/03/20 03/03/20 14:00 20:10 20:27 Temperature 98.6 F 98.6 F Pulse Rate 81 86 Respiratory 18 18 18 Rate Blood Pressure 108/61 105/61 O2 Sat by Pulse 100 100 99 Oximetry (%) 03/04/20 03/04/20 06:55 09:32 Temperature 98.8 F 98.7 F Pulse Rate 94 H 78 Respiratory 18 18 Rate Blood Pressure 125/71 120/80 O2 Sat by Pulse 95 100 Oximetry (%) GENERAL: Awake, alert, and fully oriented, in no acute distress. LUNGS: Breath sounds equal, clear to auscultation bilaterally. No wheezes, and no crackles. No accessory muscle use. HEART: Regular rate and rhythm, normal S1 and S2 ABDOMEN: Soft, nontender, not distended Laboratory Results - last 24 hr 03/04/20 07:30 WBC 10.4 RBC 2.64 L Hgb 8.2 L Hct 24.6 L MCV 93.3 MCH 31.2 MCHC 33.4 RDW 14.2 Plt Count 142 MPV 8.9 Active Medications Generic Name Dose Route Start Last Admin Trade Name Freq PRN Reason Stop Dose Admin Al Hydroxide/Mg Hydroxide 30 ml 03/02/20 09:56 Mylanta Oral Suspension - PO Q4H PRN DYSPEPSIA Amlodipine Besylate 5 mg 03/02/20 10:00 03/04/20 11:04 Norvasc - PO Not Given DAILY JD Apixaban 5 mg 03/03/20 10:00 03/04/20 11:06 Eliquis - PO 5 mg BID JD Administration Lactated Ringer's 1,000 mls @ 75 mls/hr 03/02/20 09:30 03/04/20 11:04 Lactated Ringers Solution IV Not Given ASDIR JD Sodium Chloride 500 mls @ 500 mls/hr 03/04/20 11:41 Normal Saline - IV 03/04/20 12:40 ASDIR STA Magnesium Hydroxide 30 ml 03/02/20 09:56 Milk Of Magnesia - PO PRN PRN CONSTIPATION Multivitamins/Minerals/Vitamin C 1 tab 03/02/20 10:00 03/04/20 11:06 Tab-A-Vit - PO 1 tab DAILY JD Administration Ondansetron HCl 4 mg 03/02/20 09:56 Zofran Injection IVPUSH Q6H PRN NAUSEA Oxycodone HCl 10 mg 03/02/20 10:00 03/04/20 11:04 Oxycontin - PO 03/05/20 09:30 Not Given BID JD Oxycodone HCl 5 mg 03/02/20 09:29 Roxicodone - PO Q3H PRN PAIN LEVEL 1-5 Oxycodone HCl 10 mg 03/02/20 09:29 Roxicodone - PO Q3H PRN PAIN LEVEL 6-10 Pantoprazole Sodium 40 mg 03/02/20 10:00 03/04/20 11:06 Protonix - PO 40 mg DAILY JD Administration Rivastigmine Tartrate 1.5 mg/ 4.5 mg 03/02/20 22:00 03/04/20 11:06 Rivastigmine Tartrate 3 mg PO 4.5 mg BID JD Administration Rosuvastatin Calcium 20 mg 03/02/20 22:00 03/03/20 21:38 Crestor - PO 20 mg HS JD Administration Senna/Docusate Sodium 2 tablet 03/02/20 22:00 03/04/20 11:06 Pericolace - PO Not Given BID JD Valsartan 160 mg 03/02/20 10:00 03/04/20 11:04 Diovan - PO Not Given DAILY JD ASSESSMENT/PLAN: 79 year-old female with a [facility] signficant for HTN, HLD, h/o CVA/TIA, Puckett's esophagus, and right knee DJD s/p right PETROS [place] knee replacement on 03/02/[address] Garsia. On POD #1 patient became hypotensive during physical therapy. On POD #2, she again became hypotensive and lightheaded during physical therapy. We were asked to assess the patient. Orthostatic hypotension --gave 500cc bolus of NS, then 125mL/hr --repeat orthstatics this afternoon still showed hypotension with 30+ pulse difference --continue IV fluids overnight --check orthostatics in am --check lytes in am Acute blood loss anemia --preop Hgb 13.1, today 8.2 --check h/h in am --get type and screen Dispo: We will continue to follow the patient. Thank you for this consultative opportunity. Visit type - Medication Review Med list reviewed for High Risk Meds patients 65 and older: Yes - Emergency Visit Emergency Visit: No - New Patient This patient is new to me today: Yes Date on this admission: 03/04/20 - Critical Care Critical Care patient: No
[2020-03-04] MEDS: ROSUVASTATIN CA 20 MG TABLET (FP) PO SCH (22:06)
--- NOTE | 2020-03-05 06:08 | PN ---
Physical Exam: SUBJECTIVE: Patient seen and examineds oob to chair. Did well in PT this morning. No dizziness. OBJECTIVE: Vital Signs Period Temp Pulse Resp BP Sys/Hoffmann Pulse Ox Last 24 Hr 98.7 F-99.9 F 78-123 18-18 105-140/55-80 95-100 GENERAL: The patient is awake, alert, and fully oriented, in no acute distress. LUNGS: Breath sounds equal, clear to auscultation bilaterally HEART: Regular rate and rhythm, S1, S2 RLE: Surgical dressing c/d/i NEUROLOGICAL: Cranial nerves II through XII grossly intact. Normal speech Laboratory Results - last 24 hr 03/04/20 03/04/20 07:30 16:15 WBC 10.4 RBC 2.64 L Hgb 8.2 L Hct 24.6 L MCV 93.3 MCH 31.2 MCHC 33.4 RDW 14.2 Plt Count 142 MPV 8.9 Blood Type O POSITIVE Antibody Screen Negative Active Medications Generic Name Dose Route Start Last Admin Trade Name Freq PRN Reason Stop Dose Admin Al Hydroxide/Mg Hydroxide 30 ml 03/02/20 09:56 Mylanta Oral Suspension - PO Q4H PRN DYSPEPSIA Amlodipine Besylate 5 mg 03/02/20 10:00 03/04/20 11:04 Norvasc - PO Not Given DAILY JD Apixaban 5 mg 03/03/20 10:00 03/04/20 22:05 Eliquis - PO 5 mg BID JD Administration Lactated Ringer's 1,000 mls @ 75 mls/hr 03/02/20 09:30 03/04/20 11:04 Lactated Ringers Solution IV Not Given ASDIR JD Magnesium Hydroxide 30 ml 03/02/20 09:56 Milk Of Magnesia - PO PRN PRN CONSTIPATION Multivitamins/Minerals/Vitamin C 1 tab 03/02/20 10:00 03/04/20 11:06 Tab-A-Vit - PO 1 tab DAILY JD Administration Ondansetron HCl 4 mg 03/02/20 09:56 Zofran Injection IVPUSH Q6H PRN NAUSEA Oxycodone HCl 10 mg 03/02/20 10:00 03/04/20 22:05 Oxycontin - PO 03/05/20 09:30 10 mg BID JD Administration Oxycodone HCl 5 mg 03/02/20 09:29 Roxicodone - PO Q3H PRN PAIN LEVEL 1-5 Oxycodone HCl 10 mg 03/02/20 09:29 Roxicodone - PO Q3H PRN PAIN LEVEL 6-10 Pantoprazole Sodium 40 mg 03/02/20 10:00 03/04/20 11:06 Protonix - PO 40 mg DAILY JD Administration Rivastigmine Tartrate 1.5 mg/ 4.5 mg 03/02/20 22:00 03/04/20 22:05 Rivastigmine Tartrate 3 mg PO 4.5 mg BID JD Administration Rosuvastatin Calcium 20 mg 03/02/20 22:00 03/04/20 22:06 Crestor - PO 20 mg HS JD Administration Senna/Docusate Sodium 2 tablet 03/02/20 22:00 03/04/20 22:06 Pericolace - PO Not Given BID JD Valsartan 160 mg 03/02/20 10:00 03/04/20 11:04 Diovan - PO Not Given DAILY JD ASSESSMENT/PLAN: 79 year-old female with a [facility] signficant for HTN, HLD, h/o CVA/TIA, Puckett's esophagus, and right knee DJD s/p right PETROS [place] knee replacement on 03/02/[address] Garsia. On POD #1 patient became hypotensive during physical therapy. On POD #2, she again became hypotensive and lightheaded during physical therapy. We were asked to assess the patient. Orthostatic hypotension --treated with IV fluids; orthostasis has resolved; hemodynamically stable Acute blood loss anemia --preop Hgb 13.1, today 7.6 --per surgery, no transfusion Dispo: Thank you for this consultative opportunity. Visit type - Emergency Visit Emergency Visit: No - New Patient This patient is new to me today: No - Critical Care Critical Care patient: No - Discharge Referral Referred to [facility] Med P.C.: No - Medication Review Med list reviewed for High Risk Meds patients 65 and older: Yes
[2020-03-05] MEDS: oxyCODONE HCL 5 MG TABLET PO PRN ×2 (06:20→10:08)
[2020-03-05 08:10] LABS: BASO % 0.4 % (0-2.0); EOS % 0.4 % (0-4.5); HEMATOCRIT 23.1 % (32.4-45.2); LYMPH % 14.1 % (8-40); MCH 30.6 pg (25.7-33.7); MCHC 32.6 g/dl (32.0-36.0); MEAN PLT VOLUME 9.1 fl (7.5-11.1); MONO % 11.4 % (3.8-10.2); NEUT % 73.7 % (42.8-82.8); PLATELET COUNT 147 K/MM3 (134-434); RBC 2.46 M/mm3 (3.60-5.2); RDW 14.2 % (11.6-15.6); WHITE BLOOD COUNT 10.8 K/mm3 (4.0-10.8)
--- NOTE | 2020-03-05 08:26 | PN ---
Progress Note (short form) - Note Progress Note: Ortho Pt seen and examined s/p right mari tkr pod #3. Pt had dizziness and hypotension yesterday. Pt is feeling better today. Selected Entries 03/04/20 03/04/20 21:00 22:54 Temperature 99.5 F Pulse Rate 103 H Respiratory 18 18 Rate Blood Pressure 140/77 Laboratory Tests 03/05/20 07:08 WBC Pending Hgb Pending Hct Pending Plt Count Pending dressing with slight drainage but no to borders, rom 0-50, calf soft, nt nvi a/p f/u h/h hold eliquis for today, resume tomorrow continue IVF montior BP PT dvt ppx pain control, minimize opiates if BP stabilizes and cleared by hospitalist, ok to d/c home
[2020-03-05 08:47] LABS: ALBUMIN 3.2 g/dl (3.4-5.0); BILIRUBIN,TOTAL 0.8 mg/dl (0.2-1); CALCIUM 8.4 mg/dl (8.5-10); CREATININE 0.9 mg/dl (0.55-1.3); MAGNESIUM 1.9 mg/dL (1.8-2.4); POTASSIUM 3.5 mmol/L (3.5-5.1); TOT PROT 5.3 g/dl (6.4-8.2)
[2020-03-05 09:09] LABS: HEMOGLOBIN 7.6 GM/dl (10.7-15.3)
[2020-03-05] MEDS ORDERED: PT OWN MED DRAWER 7, Y5N ONE (09:43)
[2020-03-05] MEDS: PANTOPRAZOLE 40 MG TABLET PO SCH (10:09)
[2020-03-05] MEDS: MULTIVITAMINS (DAILY MVI) TABLET (FP) PO SCH (10:09)
[2020-03-05] MEDS: SENNOSIDES/DOCUSATE COMBO (SENNA PLUS) TABLET (UD) PO SCH (10:10)
[2020-03-05] MEDS: VALSARTAN 160 MG TABLET PO SCH (10:10)
[2020-03-05] MEDS: RIVASTIGMINE TARTRATE PO SCH (10:10)
[2020-03-05] MEDS: amLODIPine BESYLATE 5 MG TABLET (FP) PO SCH (10:10)
[2020-03-05] MEDS: LACTATED RINGERS SOLUTION 1,000 ML IV SCH (10:10)
[2020-03-05 13:11] LABS: HEMATOCRIT 23.1 % (32.4-45.2); HEMOGLOBIN 7.7 GM/dl (10.7-15.3); MCHC 33.1 g/dl (32.0-36.0); MEAN CELL VOLUME 93.7 fl (80-96); MEAN PLT VOLUME 8.8 fl (7.5-11.1); PLATELET COUNT 141 K/MM3 (134-434); RBC 2.47 M/mm3 (3.60-5.2); RDW 13.8 % (11.6-15.6); WHITE BLOOD COUNT 11.3 K/mm3 (4.0-10.8)
--- NOTE | 2020-03-05 14:14 | DS ---
Physical Examination Vital Signs: Vital Signs Temperature 98.9 F 03/05/20 10:00 Pulse Rate 88 03/05/20 10:00 Respiratory Rate 18 03/05/20 10:00 Blood Pressure 115/78 03/05/20 10:00 O2 Sat by Pulse Oximetry (%) 95 03/05/20 10:00 Labs: CBC, BMP 03/05/20 12:46 03/05/20 07:08 Discharge Summary Problems reviewed: Yes Reason For Visit: OSTEOARTHRITIS Hospital Course: admitted for elective right mari tkr, post-op per protocol,developed hypotension and was monitored, BP stabilized and was cleared medically for d/c Condition: Good - Instructions Diet, Activity, Other Instructions: Post-op Instructions-Total Knee Replacement Call the office for a follow-up appointment in 1 week - [phone] Perry Cornejo. Pain medication was sent into your pharmacy. Apply Graduated Compression Stockings (TEDs) to both lower extremities- remove daily for hygiene ONLY Apply Sequential Compression Device (SCDs) to both Lower extremities remove for PT and hygiene ONLY Apply cold packs to affected area for 15 minutes every 2 hours. Physical Therapist will come to your home for the first 5 days. You will be set up with outpatient PT at your first post-operative visit. Patient may ambulate as tolerated-encourage self care (at least every 2-3 hours while awake) with walker or cane Maintain Aquacel (waterproof) dressing to operative wound (will be removed by surgeon at first office visit) Shower with Aquacel dressing in place-if Aquacel integrity compromised, remove and apply dry sterile dressing and notify Orthopedist. DO NOT SHOWER unless Orthopedists approves without Aquacel dressing CONTACT THE OFFICE FOR ANY CHANGE IN YOUR CONDITION (for example-fever greater than 102 degrees, excessive bleeding from operative site, purulent drainage, severe swelling or pain) GO TO THE EMERGENCY ROOM IF THERE IS A MEDICAL EMERGENCY Knee Precautions: * Keep a rolled towel under affected heel while in bed or chair (to keep knee in extension) * Keep affected leg elevated except during mealtimes * DO NOT PLACE PILLOW UNDER AFFECTED KNEE * If you have any questions, please do not hesitate to call the office - [phone]. Referrals: Raymond Garsia MD [Staff Physician] - Disposition: VNS/HOME HEALTH CARE - Home Medications Comprehensive Discharge Medication List: Ambulatory Orders Valsartan [Diovan] 160 mg PO DAILY 05/24/11 Amlodipine Besylate [Norvasc -] 5 mg PO DAILY 10/05/18 Apixaban [Eliquis] 5 mg PO BID 02/23/20 Rivastigmine Tartrate [Rivastigmine] 4.5 mg PO BID 02/23/20 Rosuvastatin [Crestor -] 20 mg PO DAILY 02/23/20 Vitamin B Comp W-C [Total B with C -] 1 each PO DAILY 02/23/20 Oxycodone HCl/Acetaminophen [Percocet 5-325 mg Tablet -] 1 - 2 tab PO Q6H #50 tab MDD 8 03/02/20
[2020-03-05 14:16] VITALS: BP 121/68; PULSE 93; TEMP 98.6
--- NOTE | 2020-03-05 16:54 | PATH ---
Surgical Pathology Report Patient Name: AURE CHIN Med. Rec. #: [id number] /Age/Gender: 1940 (Age: 79) / F Account: [id number] Location: [facility] MED-SURG Taken: 03/02/2020 Received: 03/02/2020 Reported: 03/05/2020 Physicians: Raymond Garsia M.D. Specimen(s) Received RIGHT KNEE BONES Clinical History Right knee osteoarthritis Final Diagnosis KNEE BONES, RIGHT, TOTAL KNEE REPLACEMENT: DEGENERATIVE JOINT DISEASE. Electronically Signed Adry Quezada M.D. Gross Description Received in formalin labeled "right knee bones," is a 14.0 x 10.5 x 2.0 cm aggregate of multiple portions of bone and soft tissue. The tibial plateau measures 8.0 x 5.2 x 1.7 cm. There is a 1.5 cm greatest dimension area of eburnation present. The remaining articular surfaces are elder-brown and focally granular. The underlying trabecular bone is yellow and hard. [employer] sections are submitted in one cassette, following decalcification. /03/03/2020 [facility]03/03/2020
== END 2020-03-05 16:30 | disposition home health service (06) | DRG 470 ==
LOC: FM/S 06:42
PROVIDERS: ADMIT Orthopaedic Surgery; ATTEND Orthopaedic Surgery
PROC: 8E0Y0CZ Robotic Assisted Procedure of Lower Extremity, Open Approach (ICD-10-PCS; 2020-03-02)
PROC: 0SRC0J9 Replacement of Right Knee Joint with Synthetic Substitute, Cemented, Open Approach (ICD-10-PCS; principal; 2020-03-02 10:06)
DX: M17.11 Unilateral primary osteoarthritis, right knee (principal); D62 Acute posthemorrhagic anemia; I95.1 Orthostatic hypotension; G62.9 Polyneuropathy, unspecified; I10 Essential (primary) hypertension; E78.5 Hyperlipidemia, unspecified; Z86.73 Personal history of transient ischemic attack (TIA), and cerebral infarction without residual deficits; K22.70 Barrett's esophagus without dysplasia
CPT/HCPCS: 36415; 73560-TC-RT-FY; 80053; 83735; 85025; 85027; 86850; 86900; 86901; 88304-TC; 88311-TC; 94760; 97010-GP; 97116-GP; 97163-GP; J0131

== ENCOUNTER 2021-02-12 12:14 | Observation (INO) | payer OTHER ==
[2021-02-12 14:21] LABS: BASO % 0.6 % (0-2.0); EOS % 0.2 % (0-4.5); HEMATOCRIT 36.1 % (32.4-45.2); HEMOGLOBIN 12.4 GM/dL (10.7-15.3); LYMPH % 8.9 % (8-40); MCH 30.7 pg (25.7-33.7); MCHC 34.2 g/dl (32.0-36.0); MEAN CELL VOLUME 89.7 fl (80-96); MEAN PLT VOLUME 8.7 fl (7.5-11.1); MONO % 8.5 % (3.8-10.2); NEUT % 81.8 % (42.8-82.8); PLATELET COUNT 178 10^3/uL (134-434); RBC 4.03 M/mm3 (3.60-5.2)
[2021-02-12 14:23] LABS: EPI CELLS 6 /uL (0-25.1); HYALINE CASTS 1 /uL (0-3.1); PH,URINE 5.5 (5.0-8.0); URINE APPEARANCE CLEAR; URINE BACTERIA 7 /uL (0-1359); URINE BILIRUBIN NEGATIVE (NEGATIVE); URINE COLOR YELLOW; URINE GLUCOSE (UA) NEGATIVE (NEGATIVE); URINE KETONE NEGATIVE (NEGATIVE); URINE LEUK ESTERASE NEGATIVE (NEGATIVE); URINE NITRITE NEGATIVE (NEGATIVE); URINE PROTEIN NEGATIVE (NEGATIVE); URINE RBC 30 /uL (0-23.9); URINE UROBILINOGEN 0.2 mg/dL (0.2-1.0); URINE WBC 5 /uL (0-25.8)
[2021-02-12 14:30] LABS: INR 1.39 (0.83-1.09); PROTHROMBIN TIME (PATIENT) 17.2 SEC (9.7-13.0)
[2021-02-12 14:32] LABS: ACTIVATED PTT 36.5 SECONDS (25.2-36.5)
[2021-02-12 14:39] LABS: CHLORIDE 108 mmol/L (98-107); SODIUM 141 mmol/L (136-145)
[2021-02-12 14:42] LABS: ALBUMIN 3.8 g/dl (3.4-5.0); ANION GAP 3 MMOL/L (8-16); CO2 30 mmol/L (21-32); GLUCOSE,RANDOM 73 mg/dL (74-106); LIPASE 153 U/L (73-393)
[2021-02-12 14:45] LABS: SGOT/AST 92 U/L (15-37); SGPT/ALT 47 U/L (13-61)
[2021-02-12 14:46] LABS: BILIRUBIN,TOTAL 0.5 mg/dL (0.2-1)
[2021-02-12 14:47] LABS: TOT PROT 7.1 g/dl (6.4-8.2)
[2021-02-12 14:48] LABS: ALK PHOS 70 U/L (45-117)
[2021-02-12] MEDS ORDERED: DEXTROSE 50%-WATER - 25 GM/50 ML VIAL IVPUSH ONE (16:00)
[2021-02-12] MEDS ORDERED: ACETAMINOPHEN 325 MG TABLET (FP) PO PRN ×2 (18:28→20:06)
[2021-02-12] MEDS: RIVASTIGMINE TARTRATE 1.5 MG CAPSULE PO SCH (23:09)
[2021-02-12] MEDS: APIXABAN 5 MG TABLET PO SCH (23:10)
[2021-02-12 23:38] VITALS: BMI 22.1
[2021-02-13 08:12] LABS: BASO % 0.8 % (0-2.0); EOS % 1.1 % (0-4.5); HEMATOCRIT 36.9 % (32.4-45.2); HEMOGLOBIN 12.7 GM/dL (10.7-15.3); LYMPH % 27.6 % (8-40); MCH 30.9 pg (25.7-33.7); MCHC 34.4 g/dl (32.0-36.0); MEAN CELL VOLUME 89.9 fl (80-96); MEAN PLT VOLUME 9.2 fl (7.5-11.1); MONO % 7.4 % (3.8-10.2); NEUT % 63.1 % (42.8-82.8); PLATELET COUNT 190 10^3/uL (134-434); RBC 4.11 M/mm3 (3.60-5.2); WHITE BLOOD COUNT 7.5 K/mm3 (4.0-10.0)
[2021-02-13 08:20] LABS: CHLORIDE 109 mmol/L (98-107); SODIUM 142 mmol/L (136-145)
[2021-02-13 08:27] LABS: ALBUMIN 3.8 g/dl (3.4-5.0); ANION GAP 3 MMOL/L (8-16); BLOOD UREA NITROGEN 9.8 mg/dL (7-18); CALCIUM 9.1 mg/dL (8.5-10.1); CO2 31 mmol/L (21-32)
[2021-02-13 08:28] LABS: GLUCOSE,RANDOM 74 mg/dL (74-106)
[2021-02-13 08:30] LABS: SGPT/ALT 38 U/L (13-61)
[2021-02-13 08:31] LABS: BILIRUBIN,TOTAL 0.9 mg/dL (0.2-1); SGOT/AST 32 U/L (15-37)
[2021-02-13 08:32] LABS: TOT PROT 6.9 g/dl (6.4-8.2)
[2021-02-13 08:33] LABS: ALK PHOS 65 U/L (45-117)
[2021-02-13] MEDS ORDERED: PT OWN MED DRAWER 7, Y5N ONE (09:47)
[2021-02-13 09:55] VITALS: BP 119/73; PULSE 70; TEMP 98.2
[2021-02-13] MEDS: RIVASTIGMINE TARTRATE 1.5 MG CAPSULE PO SCH (09:56)
[2021-02-13] MEDS: APIXABAN 5 MG TABLET PO SCH (09:56)
[2021-02-13] MEDS ORDERED: VITAMIN B COMPLEX W/C COMBO TABLET (FP) PO SCH (10:00)
[2021-02-13] MEDS ORDERED: VALSARTAN 160 MG TABLET PO SCH (10:00)
[2021-02-13] MEDS ORDERED: PANTOPRAZOLE 40 MG TABLET PO SCH (10:00)
[2021-02-13] MEDS ORDERED: amLODIPine BESYLATE 5 MG TABLET (FP) PO SCH (10:00)
[2021-02-13] MEDS ORDERED: ROSUVASTATIN CA 20 MG TABLET (FP) PO SCH (22:00)
== END 2021-02-13 14:30 | disposition home or self-care (01) ==
LOC: JER 12:14 → JERBED 17:22 → J4W 22:45
PROVIDERS: ADMIT Internal Medicine; ATTEND Internal Medicine
PROC: 3E033GC Introduction of Other Therapeutic Substance into Peripheral Vein, Percutaneous Approach (ICD-10-PCS; principal; 2021-02-12)
DX: R10.13 Epigastric pain (principal); E78.5 Hyperlipidemia, unspecified; I10 Essential (primary) hypertension; K22.70 Barrett's esophagus without dysplasia; Z86.73 Personal history of transient ischemic attack (TIA), and cerebral infarction without residual deficits; Z79.01 Long term (current) use of anticoagulants
CPT/HCPCS: 36415; 71045-TC-FY; 71275-TC; 74174-TC; 76705-TC; 80053; 81003; 82550; 83605; 83690; 84484; 85025; 85610; 85730; 86850; 86900; 86901; 87086; 93005; 93010; 96374; 99285-25; C9803; G0378; U0003; U0005

== ENCOUNTER 2021-12-18 10:59 | Observation (INO) | payer OTHER ==
[2021-12-18 12:06] LABS: BASO % 0.8 % (0-2.0); EOS % 0.7 % (0-4.5); HEMATOCRIT 36.6 % (32.4-45.2); HEMOGLOBIN 12.4 GM/dL (10.7-15.3); MCH 30.5 pg (25.7-33.7); MEAN CELL VOLUME 89.7 fl (80-96); MEAN PLT VOLUME 8.3 fl (7.5-11.1); MONO % 8.4 % (3.8-10.2); NEUT % 70.1 % (42.8-82.8); PLATELET COUNT 178 10^3/uL (134-434); RBC 4.08 M/mm3 (3.60-5.2); RDW 14.7 % (11.6-15.6); WHITE BLOOD COUNT 6.6 K/mm3 (4.0-10.0)
[2021-12-18 12:11] LABS: INR 1.58 (0.83-1.09); PROTHROMBIN TIME (PATIENT) 18.3 SEC (9.7-13.0)
[2021-12-18 12:14] LABS: ACTIVATED PTT 38.1 SECONDS (25.2-36.5)
[2021-12-18 12:27] LABS: ALBUMIN 3.7 g/dl (3.4-5.0)
[2021-12-18 12:28] LABS: BLOOD UREA NITROGEN 15.4 mg/dL (7-18)
[2021-12-18 12:31] LABS: CREATININE 1.1 mg/dL (0.55-1.3)
[2021-12-18 12:32] LABS: BILIRUBIN,TOTAL 0.5 mg/dL (0.2-1); TOT PROT 6.5 g/dl (6.4-8.2)
[2021-12-18] MEDS: CEFTRIAXONE 1 GM in DEXTROSE 5%-WATER - 50 ML IVPB SCH (20:00)
[2021-12-18] MEDS ORDERED: CEFTRIAXONE 1 GM/50 ML BAG ONE (20:16)
[2021-12-18] MEDS ORDERED: APIXABAN 2.5 MG TABLET ONE (21:28)
[2021-12-18] MEDS: APIXABAN 2.5 MG TABLET PO SCH (21:44)
[2021-12-18] MEDS: RIVASTIGMINE TARTRATE 1.5 MG CAPSULE PO SCH (21:44)
[2021-12-18] MEDS: ROSUVASTATIN CA 20 MG TABLET PO SCH (21:44)
[2021-12-18] MEDS ORDERED: APIXABAN 5 MG TABLET PO SCH (22:00)
[2021-12-19 01:14] LABS: EPI CELLS 9 /uL (0-25.1); HYALINE CASTS 1 /uL (0-3.1); PH,URINE 5.5 (5.0-8.0); URINE APPEARANCE CLEAR; URINE BACTERIA 60 /uL (0-1359); URINE BILIRUBIN NEGATIVE (NEGATIVE); URINE COLOR YELLOW; URINE GLUCOSE (UA) NEGATIVE (NEGATIVE); URINE KETONE NEGATIVE (NEGATIVE); URINE LEUK ESTERASE TRACE (NEGATIVE); URINE NITRITE NEGATIVE (NEGATIVE); URINE PROTEIN NEGATIVE (NEGATIVE); URINE RBC 42 /uL (0-23.9); URINE WBC 24 /uL (0-25.8)
[2021-12-19] MEDS ORDERED: VALSARTAN 80 MG TABLET ONE (09:35)
[2021-12-19] MEDS ORDERED: APIXABAN 2.5 MG TABLET ONE ×2 (09:35→10:27)
[2021-12-19] MEDS ORDERED: CEFTRIAXONE 1 GM/50 ML BAG ONE (09:36)
[2021-12-19] MEDS: VALSARTAN 160 MG TABLET PO SCH (10:24)
[2021-12-19] MEDS: CEFTRIAXONE 1 GM in DEXTROSE 5%-WATER - 50 ML IVPB SCH (10:24)
[2021-12-19] MEDS: APIXABAN 2.5 MG TABLET PO SCH ×2 (10:24→21:42)
[2021-12-19] MEDS: VITAMIN B COMPLEX W/C COMBO TABLET (FP) PO SCH (11:27)
[2021-12-19] MEDS: CITALOPRAM HYDROBROMIDE 20 MG TABLET PO SCH (11:27)
[2021-12-19] MEDS: RIVASTIGMINE TARTRATE 1.5 MG CAPSULE PO SCH ×2 (11:27→22:04)
[2021-12-19 20:17] VITALS: BMI 20.7
[2021-12-19 20:45] LABS: EPI CELLS 8 /uL (0-25.1); HYALINE CASTS 2 /uL (0-3.1); PH,URINE 5.5 (5.0-8.0); URINE APPEARANCE CLEAR; URINE BACTERIA 8 /uL (0-1359); URINE BILIRUBIN NEGATIVE (NEGATIVE); URINE COLOR YELLOW; URINE GLUCOSE (UA) NEGATIVE (NEGATIVE); URINE KETONE TRACE (NEGATIVE); URINE LEUK ESTERASE 1+ (NEGATIVE); URINE NITRITE NEGATIVE (NEGATIVE); URINE PROTEIN NEGATIVE (NEGATIVE); URINE RBC 57 /uL (0-23.9); URINE WBC 41 /uL (0-25.8)
[2021-12-19] MEDS: DONEPEZIL HCL 5 MG TABLET (FP) PO SCH (21:42)
[2021-12-19] MEDS: ROSUVASTATIN CA 20 MG TABLET PO SCH (21:42)
[2021-12-20 06:49] LABS: BASO % 1.3 % (0-2.0); EOS % 1.4 % (0-4.5); HEMATOCRIT 38.5 % (32.4-45.2); HEMOGLOBIN 13.3 GM/dL (10.7-15.3); LYMPH % 32.7 % (8-40); MCH 30.8 pg (25.7-33.7); MCHC 34.5 g/dl (32.0-36.0); MEAN CELL VOLUME 89.3 fl (80-96); MONO % 6.7 % (3.8-10.2); NEUT % 57.9 % (42.8-82.8); PLATELET COUNT 179 10^3/uL (134-434); RBC 4.31 M/mm3 (3.60-5.2); RDW 14.6 % (11.6-15.6); WHITE BLOOD COUNT 6.5 K/mm3 (4.0-10.0)
[2021-12-20 07:10] LABS: CALCIUM 9.3 mg/dL (8.5-10.1)
[2021-12-20 07:11] LABS: ALBUMIN 3.9 g/dl (3.4-5.0); BLOOD UREA NITROGEN 16.4 mg/dL (7-18); MAGNESIUM 2.4 mg/dL (1.8-2.4)
[2021-12-20 07:15] LABS: BILIRUBIN,TOTAL 0.6 mg/dL (0.2-1); TOT PROT 6.8 g/dl (6.4-8.2)
[2021-12-20] MEDS: CITALOPRAM HYDROBROMIDE 20 MG TABLET PO SCH (09:40)
[2021-12-20] MEDS: VALSARTAN 160 MG TABLET PO SCH (09:40)
[2021-12-20] MEDS: APIXABAN 2.5 MG TABLET PO SCH ×2 (09:40→21:48)
[2021-12-20] MEDS: RIVASTIGMINE TARTRATE 1.5 MG CAPSULE PO SCH ×2 (09:42→21:47)
[2021-12-20] MEDS ORDERED: CEFTRIAXONE 1 GM in DEXTROSE 5%-WATER - 50 ML IVPB SCH (10:02)
[2021-12-20] MEDS ORDERED: DEXTROSE 5%-WATER - 50 ML IVPB ONE (10:09)
[2021-12-20] MEDS ORDERED: cefTRIAXone SODIUM 1 GM VIAL ONE (10:09)
[2021-12-20] MEDS: CEFTRIAXONE 1 GM in DEXTROSE 5%-WATER - 50 ML IVPB SCH (10:28)
[2021-12-20] MEDS: VITAMIN B COMPLEX W/C COMBO TABLET (FP) PO SCH (11:40)
[2021-12-20] MEDS: DONEPEZIL HCL 5 MG TABLET (FP) PO SCH (21:48)
[2021-12-20] MEDS: ROSUVASTATIN CA 20 MG TABLET PO SCH (21:48)
[2021-12-21 07:44] LABS: BASO % 0.9 % (0-2.0); EOS % 1.8 % (0-4.5); HEMATOCRIT 38.5 % (32.4-45.2); HEMOGLOBIN 13.1 GM/dL (10.7-15.3); LYMPH % 35.3 % (8-40); MCH 30.5 pg (25.7-33.7); MEAN CELL VOLUME 89.9 fl (80-96); MEAN PLT VOLUME 8.9 fl (7.5-11.1); MONO % 6.6 % (3.8-10.2); NEUT % 55.4 % (42.8-82.8); PLATELET COUNT 182 10^3/uL (134-434); RBC 4.29 M/mm3 (3.60-5.2); RDW 14.8 % (11.6-15.6); WHITE BLOOD COUNT 6.2 K/mm3 (4.0-10.0)
[2021-12-21 08:03] LABS: CALCIUM 9.4 mg/dL (8.5-10.1)
[2021-12-21 08:04] LABS: ALBUMIN 3.8 g/dl (3.4-5.0); BLOOD UREA NITROGEN 13.6 mg/dL (7-18); MAGNESIUM 2.7 mg/dL (1.8-2.4)
[2021-12-21 08:05] LABS: BILIRUBIN,TOTAL 0.5 mg/dL (0.2-1); TOT PROT 6.5 g/dl (6.4-8.2)
[2021-12-21] MEDS: CEFTRIAXONE 1 GM in DEXTROSE 5%-WATER - 50 ML IVPB SCH (09:01)
[2021-12-21] MEDS: metoPROLOL SUCCINATE 25 MG TAB.SR.24H (FP) PO SCH (09:02)
[2021-12-21] MEDS: VALSARTAN 160 MG TABLET PO SCH (09:02)
[2021-12-21] MEDS: RIVASTIGMINE TARTRATE 1.5 MG CAPSULE PO SCH ×2 (09:02→22:38)
[2021-12-21] MEDS: CITALOPRAM HYDROBROMIDE 20 MG TABLET PO SCH (09:03)
[2021-12-21] MEDS: VITAMIN B COMPLEX W/C COMBO TABLET (FP) PO SCH (09:03)
[2021-12-21] MEDS: APIXABAN 2.5 MG TABLET PO SCH ×2 (09:03→22:38)
[2021-12-21] MEDS: DONEPEZIL HCL 5 MG TABLET (FP) PO SCH (22:38)
[2021-12-21] MEDS: ROSUVASTATIN CA 20 MG TABLET PO SCH (22:38)
[2021-12-22 07:42] LABS: BASO % 0.7 % (0-2.0); EOS % 0.7 % (0-4.5); HEMATOCRIT 38.7 % (32.4-45.2); HEMOGLOBIN 13.4 GM/dL (10.7-15.3); LYMPH % 23.2 % (8-40); MCH 30.5 pg (25.7-33.7); MCHC 34.5 g/dl (32.0-36.0); MEAN CELL VOLUME 88.5 fl (80-96); MEAN PLT VOLUME 9.2 fl (7.5-11.1); MONO % 6.2 % (3.8-10.2); NEUT % 69.2 % (42.8-82.8); PLATELET COUNT 175 10^3/uL (134-434); RBC 4.37 M/mm3 (3.60-5.2); RDW 14.8 % (11.6-15.6); WHITE BLOOD COUNT 7.5 K/mm3 (4.0-10.0)
[2021-12-22 08:08] LABS: BLOOD UREA NITROGEN 12.6 mg/dL (7-18); CALCIUM 9.3 mg/dL (8.5-10.1)
[2021-12-22 08:09] LABS: ALBUMIN 3.8 g/dl (3.4-5.0); MAGNESIUM 2.6 mg/dL (1.8-2.4)
[2021-12-22 08:13] LABS: BILIRUBIN,TOTAL 0.6 mg/dL (0.2-1); TOT PROT 6.4 g/dl (6.4-8.2)
[2021-12-22] MEDS: APIXABAN 2.5 MG TABLET PO SCH ×2 (09:52→21:53)
[2021-12-22] MEDS: VALSARTAN 160 MG TABLET PO SCH (09:53)
[2021-12-22] MEDS: CITALOPRAM HYDROBROMIDE 20 MG TABLET PO SCH (09:53)
[2021-12-22] MEDS: RIVASTIGMINE TARTRATE 1.5 MG CAPSULE PO SCH ×2 (09:55→21:54)
[2021-12-22] MEDS: metoPROLOL SUCCINATE 25 MG TAB.SR.24H (FP) PO SCH (09:56)
[2021-12-22] MEDS: VITAMIN B COMPLEX W/C COMBO TABLET (FP) PO SCH (09:56)
[2021-12-22] MEDS: PANTOPRAZOLE 20 MG TABLET PO SCH (10:15)
[2021-12-22] MEDS: ROSUVASTATIN CA 20 MG TABLET PO SCH (21:53)
[2021-12-22] MEDS: DONEPEZIL HCL 5 MG TABLET (FP) PO SCH (21:53)
[2021-12-23] MEDS: VALSARTAN 160 MG TABLET PO SCH (10:30)
[2021-12-23] MEDS: PANTOPRAZOLE 20 MG TABLET PO SCH (10:31)
[2021-12-23] MEDS: CITALOPRAM HYDROBROMIDE 20 MG TABLET PO SCH (10:31)
[2021-12-23] MEDS: metoPROLOL SUCCINATE 25 MG TAB.SR.24H (FP) PO SCH (10:31)
[2021-12-23] MEDS: APIXABAN 2.5 MG TABLET PO SCH ×2 (10:31→21:46)
[2021-12-23] MEDS: VITAMIN B COMPLEX W/C COMBO TABLET (FP) PO SCH (10:34)
[2021-12-23] MEDS: RIVASTIGMINE TARTRATE 1.5 MG CAPSULE PO SCH ×2 (10:34→21:46)
[2021-12-23] MEDS ORDERED: ROSUVASTATIN CA 20 MG TABLET PO SCH (22:00)
[2021-12-23] MEDS ORDERED: DONEPEZIL HCL 5 MG TABLET (FP) PO SCH (22:00)
[2021-12-24] MEDS ORDERED: PANTOPRAZOLE 20 MG TABLET PO SCH (10:00)
[2021-12-24] MEDS ORDERED: VITAMIN B COMPLEX W/C COMBO TABLET (FP) PO SCH (10:00)
[2021-12-24] MEDS ORDERED: VALSARTAN 160 MG TABLET PO SCH (10:00)
[2021-12-24] MEDS ORDERED: metoPROLOL SUCCINATE 25 MG TAB.SR.24H (FP) PO SCH (10:00)
[2021-12-24] MEDS ORDERED: CITALOPRAM HYDROBROMIDE 20 MG TABLET PO SCH (10:00)
[2021-12-24] MEDS: APIXABAN 2.5 MG TABLET PO SCH (10:01)
[2021-12-24] MEDS: RIVASTIGMINE TARTRATE 1.5 MG CAPSULE PO SCH (10:02)
[2021-12-24 13:33] VITALS: BP 115/73; PULSE 70; RESP 15; TEMP 98.6
== END 2021-12-24 15:23 ==
LOC: JER 10:59 → JERBED 13:32 → J4W 12-19 19:11 → J5S 12-23 18:38
PROVIDERS: ADMIT Internal Medicine; ATTEND Nurse Practitioner Family
DX: R55 Syncope and collapse (principal); I10 Essential (primary) hypertension; G93.41 Metabolic encephalopathy; I51.3 Intracardiac thrombosis, not elsewhere classified; I48.91 Unspecified atrial fibrillation; F03.90 Unspecified dementia, unspecified severity, without behavioral disturbance, psychotic disturbance, mood disturbance, and anxiety; Z29.8 Encounter for other specified prophylactic measures; R29.6 Repeated falls; K22.70 Barrett's esophagus without dysplasia; E78.5 Hyperlipidemia, unspecified; Z86.73 Personal history of transient ischemic attack (TIA), and cerebral infarction without residual deficits; Z90.49 Acquired absence of other specified parts of digestive tract; W10.9XXA Fall (on) (from) unspecified stairs and steps, initial encounter; Y93.89 Activity, other specified; Y92.096 Garden or yard of other non-institutional residence as the place of occurrence of the external cause; R34 Anuria and oliguria; M62.81 Muscle weakness (generalized); R01.1 Cardiac murmur, unspecified
CPT/HCPCS: 0241U-QW; 36415; 70450-TC; 71045-TC-FY; 72125-TC; 72170-TC-FY; 80053; 81003; 82550; 82553; 82607; 83735; 84439; 84443; 84484; 85025; 85610; 85730; 87086; 93005; 93010; 93306-TC; 96365; 96366; 97116-GP; 97161-GP; 99285-25; G0378

== ENCOUNTER 2023-01-19 19:10 | Inpatient (IN) | payer OTHER ==
[2023-01-19 19:25] VITALS: BMI 26.6
[2023-01-19] MEDS ORDERED: LACTATED RINGERS SOLUTION 1000 ML INFUS.BAG IV ONE (20:22)
[2023-01-19 20:36] LABS: BASO % 0.5 % (0-2.0); EOS % 0.2 % (0-4.5); HEMATOCRIT 36.7 % (32.4-45.2); HEMOGLOBIN 12.4 GM/dL (10.7-15.3); LYMPH % 10.9 % (8-40); MCH 30.4 pg (25.7-33.7); MCHC 33.7 g/dl (32.0-36.0); MEAN CELL VOLUME 90.2 fl (80-96); MEAN PLT VOLUME 9.1 fl (7.5-11.1); NEUT % 79.4 % (42.8-82.8); PLATELET COUNT 167 10^3/uL (134-434); RBC 4.07 M/mm3 (3.60-5.2); RDW 14.9 % (11.6-15.6)
[2023-01-19] MEDS ORDERED: DEXAMETHASONE 4 MG TABLET (FP) ONE (20:43)
[2023-01-19 20:59] LABS: ALBUMIN 3.4 g/dl (3.4-5.0); BLOOD UREA NITROGEN 15.6 mg/dL (7-18)
[2023-01-19 21:02] LABS: CREATININE 1.3 mg/dL (0.55-1.3)
[2023-01-19 21:04] LABS: BILIRUBIN,TOTAL 0.4 mg/dL (0.2-1); TOT PROT 6.2 g/dl (6.4-8.2)
[2023-01-19 21:08] LABS: CALCIUM 8.5 mg/dL (8.5-10.1)
[2023-01-19 23:03] LABS: EPI CELLS 2 /uL (0-25.1); HYALINE CASTS 0 /uL (0-3.1); URINE APPEARANCE CLEAR; URINE BACTERIA 20 /uL (0-1359); URINE BILIRUBIN NEGATIVE (NEGATIVE); URINE COLOR YELLOW; URINE GLUCOSE (UA) NEGATIVE (NEGATIVE); URINE KETONE NEGATIVE (NEGATIVE); URINE LEUK ESTERASE TRACE (NEGATIVE); URINE NITRITE NEGATIVE (NEGATIVE); URINE PROTEIN NEGATIVE (NEGATIVE); URINE RBC 50 /uL (0-23.9); URINE WBC 8 /uL (0-25.8)
[2023-01-20] MEDS ORDERED: SODIUM CHLORIDE 0.9% 500 ML INFUS.BAG IV ONE (01:30)
[2023-01-20] MEDS ORDERED: LOSARTAN POTASSIUM 25 MG TABLET PO ONE (05:53)
[2023-01-20 08:36] LABS: BASO % 0.4 % (0-2.0); HEMATOCRIT 39.9 % (32.4-45.2); HEMOGLOBIN 13.6 GM/dL (10.7-15.3); LYMPH % 9.5 % (8-40); MCH 30.2 pg (25.7-33.7); MCHC 34.1 g/dl (32.0-36.0); MEAN CELL VOLUME 88.6 fl (80-96); MEAN PLT VOLUME 8.8 fl (7.5-11.1); MONO % 9.5 % (3.8-10.2); NEUT % 80.6 % (42.8-82.8); PLATELET COUNT 167 10^3/uL (134-434); RBC 4.51 M/mm3 (3.60-5.2); RDW 15.2 % (11.6-15.6); WHITE BLOOD COUNT 11.9 K/mm3 (4.0-10.0)
[2023-01-20 09:04] LABS: ALBUMIN 3.8 g/dl (3.4-5.0); BLOOD UREA NITROGEN 10.1 mg/dL (7-18); CALCIUM 8.7 mg/dL (8.5-10.1)
[2023-01-20 09:09] LABS: BILIRUBIN,TOTAL 1.1 mg/dL (0.2-1); TOT PROT 6.7 g/dl (6.4-8.2)
[2023-01-20] MEDS: CITALOPRAM HYDROBROMIDE 20 MG TABLET PO SCH (10:09)
[2023-01-20] MEDS: APIXABAN 5 MG TABLET PO SCH ×2 (10:09→21:19)
[2023-01-20] MEDS: LOSARTAN POTASSIUM 25 MG TABLET PO SCH (10:10)
[2023-01-20] MEDS: RIVASTIGMINE TARTRATE 3 MG CAPSULE PO SCH ×2 (10:11→21:19)
[2023-01-20] MEDS: CEFTRIAXONE 1 GM in DEXTROSE 5%-WATER - 50 ML IVPB SCH (17:53)
[2023-01-20] MEDS: SODIUM CHLORIDE 1,000 ML IV SCH (17:53)
[2023-01-20] MEDS: metoPROLOL SUCCINATE 25 MG TAB.SR.24H (FP) PO SCH (17:54)
[2023-01-20] MEDS: ROSUVASTATIN CA 20 MG TABLET PO SCH (21:19)
[2023-01-20] MEDS ORDERED: METOPROLOL TARTRATE 25 MG TABLET (FP) PO SCH (22:00)
[2023-01-21] MEDS: SODIUM CHLORIDE 1,000 ML IV SCH (07:08)
[2023-01-21 07:47] LABS: ALBUMIN 3.4 g/dl (3.4-5.0); CALCIUM 8.5 mg/dL (8.5-10.1)
[2023-01-21 07:48] LABS: BLOOD UREA NITROGEN 14.8 mg/dL (7-18)
[2023-01-21 07:50] LABS: BASO % 0.5 % (0-2.0); EOS % 0.6 % (0-4.5); HEMOGLOBIN 12.5 GM/dL (10.7-15.3); MCH 30.5 pg (25.7-33.7); MCHC 33.7 g/dl (32.0-36.0); MEAN CELL VOLUME 90.4 fl (80-96); MEAN PLT VOLUME 9.5 fl (7.5-11.1); MONO % 11.3 % (3.8-10.2); NEUT % 69.6 % (42.8-82.8); PLATELET COUNT 171 10^3/uL (134-434); RBC 4.09 M/mm3 (3.60-5.2); RDW 15.3 % (11.6-15.6); WHITE BLOOD COUNT 8.2 K/mm3 (4.0-10.0)
[2023-01-21 07:52] LABS: BILIRUBIN,TOTAL 0.8 mg/dL (0.2-1)
[2023-01-21] MEDS: CEFTRIAXONE 1 GM in DEXTROSE 5%-WATER - 50 ML IVPB SCH (10:08)
[2023-01-21] MEDS: metoPROLOL SUCCINATE 25 MG TAB.SR.24H (FP) PO SCH (10:08)
[2023-01-21] MEDS: APIXABAN 5 MG TABLET PO SCH ×2 (10:09→21:11)
[2023-01-21] MEDS: LOSARTAN POTASSIUM 25 MG TABLET PO SCH (10:09)
[2023-01-21] MEDS: RIVASTIGMINE TARTRATE 3 MG CAPSULE PO SCH ×2 (10:10→21:11)
[2023-01-21] MEDS: CITALOPRAM HYDROBROMIDE 20 MG TABLET PO SCH (10:10)
[2023-01-21] MEDS: ROSUVASTATIN CA 20 MG TABLET PO SCH (21:11)
[2023-01-22] MEDS: RIVASTIGMINE TARTRATE 3 MG CAPSULE PO SCH ×2 (09:13→21:06)
[2023-01-22] MEDS: metoPROLOL SUCCINATE 25 MG TAB.SR.24H (FP) PO SCH (09:13)
[2023-01-22] MEDS: LOSARTAN POTASSIUM 25 MG TABLET PO SCH (09:13)
[2023-01-22] MEDS: APIXABAN 5 MG TABLET PO SCH ×2 (09:13→21:06)
[2023-01-22] MEDS: CITALOPRAM HYDROBROMIDE 20 MG TABLET PO SCH (09:14)
[2023-01-22] MEDS: ROSUVASTATIN CA 20 MG TABLET PO SCH (21:05)
[2023-01-23] MEDS ORDERED: RIVASTIGMINE TARTRATE 1.5 MG CAPSULE PO SCH (05:32)
[2023-01-23 08:26] LABS: HEMATOCRIT 39.2 % (32.4-45.2); HEMOGLOBIN 13.1 GM/dL (10.7-15.3); MCHC 33.4 g/dl (32.0-36.0); MEAN CELL VOLUME 89.7 fl (80-96); MEAN PLT VOLUME 9.5 fl (7.5-11.1); PLATELET COUNT 179 10^3/uL (134-434); RBC 4.37 M/mm3 (3.60-5.2); RDW 14.9 % (11.6-15.6); WHITE BLOOD COUNT 7.2 K/mm3 (4.0-10.0)
[2023-01-23 08:34] LABS: ALBUMIN 3.5 g/dl (3.4-5.0); BLOOD UREA NITROGEN 16.6 mg/dL (7-18); CALCIUM 8.8 mg/dL (8.5-10.1); MAGNESIUM 2.4 mg/dL (1.8-2.4)
[2023-01-23 08:38] LABS: PHOSPHOROUS 3.8 mg/dL (2.5-4.9)
[2023-01-23 08:39] LABS: BILIRUBIN,TOTAL 0.5 mg/dL (0.2-1); TOT PROT 6.3 g/dl (6.4-8.2)
[2023-01-23 09:01] VITALS: RESP 18
[2023-01-23] MEDS: CITALOPRAM HYDROBROMIDE 20 MG TABLET PO SCH (10:09)
[2023-01-23] MEDS: APIXABAN 5 MG TABLET PO SCH (10:09)
[2023-01-23] MEDS: LOSARTAN POTASSIUM 25 MG TABLET PO SCH (10:09)
[2023-01-23] MEDS: metoPROLOL SUCCINATE 25 MG TAB.SR.24H (FP) PO SCH (10:09)
[2023-01-23 14:59] VITALS: BP 135/88; PULSE 67; TEMP 98
== END 2023-01-23 18:53 | disposition home or self-care (01) | DRG 309 ==
LOC: JER 19:10 → OBSVTOIN 23:20 → JERBED 23:20 → J4S 01-20 02:51
PROVIDERS: ADMIT Internal Medicine; ATTEND Internal Medicine
DX: I47.1 Supraventricular tachycardia (principal); F03.911 Unspecified dementia, unspecified severity, with agitation; I10 Essential (primary) hypertension; E78.5 Hyperlipidemia, unspecified; E03.9 Hypothyroidism, unspecified; E86.0 Dehydration; E16.2 Hypoglycemia, unspecified; R45.1 Restlessness and agitation; R94.5 Abnormal results of liver function studies; G62.9 Polyneuropathy, unspecified; R55 Syncope and collapse; R29.6 Repeated falls; I48.92 Unspecified atrial flutter; N31.9 Neuromuscular dysfunction of bladder, unspecified; M54.6 Pain in thoracic spine; Z86.73 Personal history of transient ischemic attack (TIA), and cerebral infarction without residual deficits; R31.29 Other microscopic hematuria; W18.39XA Other fall on same level, initial encounter; Y92.098 Other place in other non-institutional residence as the place of occurrence of the external cause
CPT/HCPCS: 36415; 70450-TC; 71045-TC-FY; 72125-TC; 76705-TC; 80048; 80053; 80061; 81003; 82550; 82553; 82962; 83036; 83735; 84100; 84443; 84484; 85025; 85027; 86705; 86708; 87086; 87350; 87517; 87522; 87635; 93005; 93010; 93306-TC; 93880-TC; 97116-GP; 97162-GP; 99285-25

== ENCOUNTER 2023-04-29 12:23 | Inpatient (IN) | payer OTHER ==
[2023-04-29 14:21] LABS: EOS % 0.7 % (0-4.5); HEMATOCRIT 36.8 % (32.4-45.2); HEMOGLOBIN 12.5 GM/dL (10.7-15.3); LYMPH % 21.3 % (8-40); MCH 30.3 pg (25.7-33.7); MCHC 33.9 g/dl (32.0-36.0); MEAN CELL VOLUME 89.4 fl (80-96); MEAN PLT VOLUME 8.9 fl (7.5-11.1); MONO % 7.2 % (3.8-10.2); NEUT % 69.8 % (42.8-82.8); PLATELET COUNT 182 10^3/uL (134-434); RBC 4.12 M/mm3 (3.60-5.2)
[2023-04-29 14:27] LABS: INR 1.49 (0.83-1.09); PROTHROMBIN TIME (PATIENT) 17.2 SEC (9.7-13.0)
[2023-04-29 14:30] LABS: ACTIVATED PTT 36.4 SECONDS (25.2-36.5)
[2023-04-29 14:40] LABS: CALCIUM 8.8 mg/dL (8.5-10.1)
[2023-04-29 14:41] LABS: ALBUMIN 3.6 g/dl (3.4-5.0); BLOOD UREA NITROGEN 11.4 mg/dL (7-18); MAGNESIUM 2.5 mg/dL (1.8-2.4)
[2023-04-29 14:44] LABS: PHOSPHOROUS 3.1 mg/dL (2.5-4.9)
[2023-04-29 14:45] LABS: BILIRUBIN,TOTAL 0.6 mg/dL (0.2-1); TOT PROT 6.3 g/dl (6.4-8.2)
[2023-04-29 14:47] LABS: CREATININE 1.1 mg/dL (0.55-1.3)
[2023-04-29 19:50] LABS: EPI CELLS 5 /uL (0-25.1); HYALINE CASTS 0 /uL (0-3.1); PH,URINE 7.5 (5.0-8.0); URINE APPEARANCE CLOUDY; URINE BACTERIA >9,000 /uL (0-1359); URINE BILIRUBIN NEGATIVE (NEGATIVE); URINE COLOR YELLOW; URINE GLUCOSE (UA) NEGATIVE (NEGATIVE); URINE KETONE NEGATIVE (NEGATIVE); URINE LEUK ESTERASE TRACE (NEGATIVE); URINE NITRITE NEGATIVE (NEGATIVE); URINE PROTEIN NEGATIVE (NEGATIVE); URINE RBC 86 /uL (0-23.9); URINE WBC 16 /uL (0-25.8)
[2023-04-29] MEDS ORDERED: APIXABAN 5 MG TABLET ONE (21:52)
[2023-04-29] MEDS ORDERED: RIVASTIGMINE TARTRATE PO SCH (22:00)
[2023-04-29] MEDS: APIXABAN 5 MG TABLET PO SCH (23:01)
[2023-04-30] MEDS: RIVASTIGMINE TARTRATE 6 MG PO SCH ×3 (00:20→22:58)
[2023-04-30 07:05] LABS: BASO % 0.8 % (0-2.0); EOS % 1.3 % (0-4.5); HEMATOCRIT 38.6 % (32.4-45.2); HEMOGLOBIN 13.2 GM/dL (10.7-15.3); LYMPH % 27.6 % (8-40); MCH 30.6 pg (25.7-33.7); MCHC 34.1 g/dl (32.0-36.0); MEAN CELL VOLUME 89.6 fl (80-96); MEAN PLT VOLUME 9.1 fl (7.5-11.1); NEUT % 62.3 % (42.8-82.8); PLATELET COUNT 181 10^3/uL (134-434); RBC 4.31 M/mm3 (3.60-5.2); WHITE BLOOD COUNT 6.7 K/mm3 (4.0-10.0)
[2023-04-30 07:08] LABS: CALCIUM 8.8 mg/dL (8.5-10.1)
[2023-04-30 07:09] LABS: BLOOD UREA NITROGEN 10.3 mg/dL (7-18)
[2023-04-30] MEDS: CITALOPRAM HYDROBROMIDE 20 MG TABLET PO SCH (10:35)
[2023-04-30] MEDS: metoPROLOL SUCCINATE 25 MG TAB.SR.24H (FP) PO SCH (10:35)
[2023-04-30] MEDS: APIXABAN 5 MG TABLET PO SCH ×2 (10:35→22:58)
[2023-04-30] MEDS: CEFTRIAXONE 1 GM in DEXTROSE 5%-WATER - 50 ML IVPB SCH (12:45)
[2023-04-30] MEDS: ROSUVASTATIN CA 20 MG TABLET PO SCH (22:58)
[2023-05-01 08:31] LABS: BASO % 0.7 % (0-2.0); EOS % 1.1 % (0-4.5); HEMATOCRIT 38.1 % (32.4-45.2); HEMOGLOBIN 13.1 GM/dL (10.7-15.3); LYMPH % 23.1 % (8-40); MCH 30.8 pg (25.7-33.7); MCHC 34.3 g/dl (32.0-36.0); MEAN CELL VOLUME 89.6 fl (80-96); MEAN PLT VOLUME 8.7 fl (7.5-11.1); MONO % 8.7 % (3.8-10.2); NEUT % 66.4 % (42.8-82.8); PLATELET COUNT 191 10^3/uL (134-434); RBC 4.25 M/mm3 (3.60-5.2); RDW 15.1 % (11.6-15.6); WHITE BLOOD COUNT 7.3 K/mm3 (4.0-10.0)
[2023-05-01 08:33] LABS: CALCIUM 8.9 mg/dL (8.5-10.1)
[2023-05-01 08:34] LABS: ALBUMIN 3.6 g/dl (3.4-5.0); MAGNESIUM 2.5 mg/dL (1.8-2.4)
[2023-05-01 08:37] LABS: CREATININE 1.2 mg/dL (0.55-1.3); PHOSPHOROUS 4.4 mg/dL (2.5-4.9)
[2023-05-01 08:38] LABS: TOT PROT 6.5 g/dl (6.4-8.2)
[2023-05-01 08:39] LABS: BILIRUBIN,TOTAL 0.6 mg/dL (0.2-1)
[2023-05-01] MEDS: CEFTRIAXONE 1 GM in DEXTROSE 5%-WATER - 50 ML IVPB SCH (10:20)
[2023-05-01] MEDS: metoPROLOL SUCCINATE 25 MG TAB.SR.24H (FP) PO SCH (10:21)
[2023-05-01] MEDS: RIVASTIGMINE TARTRATE 1.5 MG CAPSULE PO SCH ×2 (10:21→21:58)
[2023-05-01] MEDS: CITALOPRAM HYDROBROMIDE 20 MG TABLET PO SCH (10:22)
[2023-05-01] MEDS: APIXABAN 5 MG TABLET PO SCH ×2 (10:22→21:58)
[2023-05-01 13:43] VITALS: BMI 19.2
[2023-05-01] MEDS: ROSUVASTATIN CA 20 MG TABLET PO SCH (21:58)
[2023-05-02] MEDS: metoPROLOL SUCCINATE 25 MG TAB.SR.24H (FP) PO SCH (10:50)
[2023-05-02] MEDS: RIVASTIGMINE TARTRATE 1.5 MG CAPSULE PO SCH ×2 (10:50→21:32)
[2023-05-02] MEDS: CITALOPRAM HYDROBROMIDE 20 MG TABLET PO SCH (10:50)
[2023-05-02] MEDS: CEFTRIAXONE 1 GM in DEXTROSE 5%-WATER - 50 ML IVPB SCH (10:51)
[2023-05-02] MEDS: APIXABAN 5 MG TABLET PO SCH ×2 (10:51→21:32)
[2023-05-02] MEDS: ROSUVASTATIN CA 20 MG TABLET PO SCH (21:31)
[2023-05-03 07:45] LABS: BASO % 0.7 % (0-2.0); EOS % 1.6 % (0-4.5); HEMATOCRIT 37.3 % (32.4-45.2); HEMOGLOBIN 12.7 GM/dL (10.7-15.3); LYMPH % 24.8 % (8-40); MCH 30.8 pg (25.7-33.7); MCHC 34.1 g/dl (32.0-36.0); MEAN CELL VOLUME 90.4 fl (80-96); MEAN PLT VOLUME 8.7 fl (7.5-11.1); MONO % 8.8 % (3.8-10.2); NEUT % 64.1 % (42.8-82.8); PLATELET COUNT 178 10^3/uL (134-434); RBC 4.12 M/mm3 (3.60-5.2); RDW 15.1 % (11.6-15.6); WHITE BLOOD COUNT 7.9 K/mm3 (4.0-10.0)
[2023-05-03 07:55] LABS: POTASSIUM 4.6 mmol/L (3.5-5.1)
[2023-05-03 08:08] LABS: CALCIUM 8.9 mg/dL (8.5-10.1)
[2023-05-03 08:09] LABS: ALBUMIN 3.4 g/dl (3.4-5.0); BLOOD UREA NITROGEN 18.4 mg/dL (7-18)
[2023-05-03 08:13] LABS: BILIRUBIN,TOTAL 0.4 mg/dL (0.2-1); TOT PROT 6.4 g/dl (6.4-8.2)
[2023-05-03 08:14] LABS: CREATININE 1.1 mg/dL (0.55-1.3)
[2023-05-03] MEDS: CITALOPRAM HYDROBROMIDE 20 MG TABLET PO SCH (09:50)
[2023-05-03] MEDS: CEFTRIAXONE 1 GM in DEXTROSE 5%-WATER - 50 ML IVPB SCH (09:50)
[2023-05-03] MEDS: metoPROLOL SUCCINATE 25 MG TAB.SR.24H (FP) PO SCH (09:50)
[2023-05-03] MEDS: RIVASTIGMINE TARTRATE 1.5 MG CAPSULE PO SCH ×2 (09:50→21:04)
[2023-05-03] MEDS: APIXABAN 5 MG TABLET PO SCH ×2 (09:50→21:04)
[2023-05-03] MEDS: ROSUVASTATIN CA 20 MG TABLET PO SCH (21:04)
[2023-05-04] MEDS: CITALOPRAM HYDROBROMIDE 20 MG TABLET PO SCH (10:36)
[2023-05-04] MEDS: APIXABAN 5 MG TABLET PO SCH (10:36)
[2023-05-04] MEDS: metoPROLOL SUCCINATE 25 MG TAB.SR.24H (FP) PO SCH (10:36)
[2023-05-04] MEDS: RIVASTIGMINE TARTRATE 1.5 MG CAPSULE PO SCH (10:36)
[2023-05-04 12:44] VITALS: RESP 18
[2023-05-04 13:19] VITALS: BP 120/73; PULSE 68; TEMP 98.9
[2023-05-04] MEDS ORDERED: CEPHALEXIN MONOHYDRATE 500 MG CAPSULE (UD) PO SCH (22:00)
== END 2023-05-04 16:36 | disposition home or self-care (01) | DRG 690 ==
LOC: JER 12:23 → JERBED 17:44 → J7W 04-30 09:37 → OBSVTOIN 05-01 09:30
PROVIDERS: ADMIT Internal Medicine
DX: N39.0 Urinary tract infection, site not specified (principal); I48.92 Unspecified atrial flutter; I10 Essential (primary) hypertension; E78.5 Hyperlipidemia, unspecified; F03.90 Unspecified dementia, unspecified severity, without behavioral disturbance, psychotic disturbance, mood disturbance, and anxiety; I48.91 Unspecified atrial fibrillation; F32.A Depression, unspecified; W19.XXXA Unspecified fall, initial encounter; Y93.89 Activity, other specified; Y92.89 Other specified places as the place of occurrence of the external cause; Y99.8 Other external cause status
CPT/HCPCS: 0241U-QW; 36415; 70450-TC; 71045-TC-FY; 72125-TC; 72170-TC-FY; 80048; 80053; 81003; 82550; 83735; 84100; 84484; 85025; 85610; 85730; 86850; 86900; 86901; 87086; 87186; 93005; 93010; 97116-GP; 97161-GP; 99285-25; G0378

== ENCOUNTER 2024-10-26 19:41 | Emergency (ER) | payer OTHER ==
[2024-10-26 19:46] VITALS: BMI 19.2
[2024-10-26] MEDS ORDERED: DIPHTH,PERTUSS(ACELL),TET 0.5 ML DISP.SYRIN IM ONE (19:58)
[2024-10-26] MEDS ORDERED: BACITRACIN ZINC 15 GM TUBE TOPICAL OINTMENT ONE (19:58)
[2024-10-26] MEDS: DIPHTH,PERTUSS(ACELL),TET 0.5 ML DISP.SYRIN IM ONE (20:12)
[2024-10-26] MEDS: BACITRACIN ZINC 15 GM TUBE TOPICAL OINTMENT TP ONE (21:14)
[2024-10-27 01:17] VITALS: PULSE 75; RESP 17; TEMP 98.2
[2024-10-27 01:27] VITALS: BP 163/92
== END 2024-10-27 01:32 ==
LOC: JER 19:41
PROC: 0HQKXZZ Repair Right Lower Leg Skin, External Approach (ICD-10-PCS; principal; 2024-10-26)
PROC: 3E0234Z Introduction of Serum, Toxoid and Vaccine into Muscle, Percutaneous Approach (ICD-10-PCS; 2024-10-26)
DX: S81.811A Laceration without foreign body, right lower leg, initial encounter (principal); Z23 Encounter for immunization; W26.8XXA Contact with other sharp object(s), not elsewhere classified, initial encounter
CPT/HCPCS: 12001-25; 73590-TC-RT-FY; 90471; 90715; 99284-25